=== PATIENT | female | born 1970 | race Caucasian/White ===

== ENCOUNTER 2021-09-30 11:21 | Emergency (ER) | payer OTHER, SELFPAY ==
[2021-09-30 11:23] VITALS: BP 162/92; PULSE 78; RESP 20; TEMP 36.4; O2SAT 97; BMI 25.7
--- NOTE | 2021-09-30 11:33 | PC.NURSE ---
pt states that had her methadone 165mg po this am
== END 2021-09-30 16:21 | disposition left against medical advice (07) ==
PROVIDERS: Emergency Provider Emergency Medicine
DX: S01.91XA Laceration without foreign body of unspecified part of head, initial encounter (principal); W19.XXXA Unspecified fall, initial encounter; Y93.9 Activity, unspecified; Y92.9 Unspecified place or not applicable; Y99.9 Unspecified external cause status
CPT/HCPCS: 99281; 99282

== ENCOUNTER 2021-11-22 14:10 | Emergency (ER) | payer OTHER, SELFPAY ==
[2021-11-22 14:24] VITALS: BP 125/80; PULSE 66; O2SAT 97
== END 2021-11-22 15:30 | disposition left against medical advice (07) ==
PROVIDERS: Emergency Provider Emergency Medicine
DX: R42 Dizziness and giddiness (principal); R29.6 Repeated falls

== ENCOUNTER 2022-02-22 15:33 | Emergency (ER) | payer OTHER, SELFPAY ==
[2022-02-22 15:43] VITALS: BP 140/90; PULSE 70; RESP 18; TEMP 37.1; O2SAT 95; BMI 24.9
--- NOTE | 2022-02-22 16:13 | ED.OVERDOSE ---
HPI - Overdose General Chief Complaint: Overdose Stated Complaint: overdose Time Seen by Provider: 02/22/22 16:04 Source: patient Mode of arrival: ambulatory Limitations: no limitations History of Present Illness HPI Narrative: Patient presents to the emergency department for evaluation after a question of overdose. She states that she is currently residing at a sober living house, [facility] in [facility]. Reports that she was at an appointment today, there was supposed to be a cdl company driver to pick her up apparently was not present. She recalls walking to a store, does not recall anything after that. She states that she awoke in someone's after having been given Narcan. She denies knowing what she had use. Reports last used heroin and crack cocaine 02/01/2022. She reports since receiving Narcan she is having diffuse abdominal cramping and nausea with dry heaving. Denies any symptoms previously. Denies fevers, chills, dysuria, urinary frequency low back pain, chest pain shortness of breath, difficulty breathing. Related Data Allergies Allergy/AdvReac Type Severity Reaction Status Date / Time No Known Allergies Allergy Verified 02/22/22 15:48 Review of Systems Review of Systems: Constitutional: No weight loss, fever, chills, weakness or fatigue. Skin: No rash or itching. Cardiovascular: No chest pain, chest pressure or chest discomfort. No palpitations or pedal edema. Respiratory: No shortness of breath, cough or sputum production. Gastrointestinal: Positive nausea. No vomiting or diarrhea. Positive abdominal pain. No blood in stool. Genitourinary: No burning micturition. No urinary frequency or incontinence. Musculoskeletal: No muscle pain, back pain, joint pain or stiffness. Psychiatric: No depression or anxiety. Yes all other systems are reviewed and are negative PMFSH Past Medical History Attestation statement: The following information was validated with the patient. Source: old records reviewed Medical History Anxiety Depression Emphysema lung Hiatal hernia Social History Social History Alcohol intake: never Patient Tobacco Use Status: Current everyday Tobacco user Use of substances other than those prescribed or required for medical reasons: Yes Substance Use Type: Heroin Advance Directives: No Advance Directives Information Provided: No Patient : No Physical Exam Vital Signs: Vital Signs: Last Vital Signs Temp 98.2 F 02/22/22 17:19 Pulse 70 02/22/22 17:19 Resp 16 02/22/22 17:19 BP 142/68 H 02/22/22 17:19 Pulse Ox 93 02/22/22 17:19 O2 Del Method 02/22/22 17:19 BMI result Body Mass Index 24.9 Appearance: Alert.?Oriented to person, place and time. No acute distress.?Normal affect. Head: Normocephalic atraumatic Eyes: Pupils equal, round and reactive to light.? ENT: Pharynx normal.?? Neck: Normal inspection.? Neck supple.?? CVS: Heart sounds normal. Normal heart rate and rhythm.? Pulses normal.?? Respiratory: No respiratory distress.? Lung sounds clear to auscultation bilaterally?? Abdomen: Soft and non-tender. Normoactive bowel sounds. No CVA tenderness? Skin: Skin warm and dry.? Normal skin color.? Extremities: No lower extremity edema.? ? Neuro: Moves all extremities spontaneously. Sensation intact bilaterally. CN II-XII intact. No focal neuro deficits. Ambulates with normal steady gait. Course Course Course Narrative: Patient is a 51-year-old female who presents to the emergency department after an alleged overdose receiving Narcan uncertain amount. Was brought to the emergency department by head golf coach use. Patient with minimal recollection of what occurred after walking to a store. No evidence of head injury, no focal neurological deficits. She is overall well-appearing. Suspect nausea and abdominal cramping to be secondary to Narcan, patient to receive Zofran sublingually. Will monitor patient and refer to head golf coach for disposition Reevaluation(s) Reevaluation #1: Patient evaluated by care team; Jenniferdavid ROSENBERG, endorsed going to [facility] and received drugs from someone there reporting that she snorted 2 bags of heroin. States that due to odd behaviors someone that she was around gave her Narcan. She denies ever overdosing in the past. States that she did not use intravenous drugs previously. She has been without drug usage since 02/01/2022, reports that she is currently on methadone. Attempting to get in contact with prior sober [facility] program to determine whether patient may return. Urine toxicology is positive for opiates, fentanyl, and cocaine. Reevaluation #2: CBC reveals mild leukocytosis which is likely reactive with vomiting. Denies any recent infectious symptoms no upper respiratory symptoms, no shortness of breath, no abdominal pain, no dysuria or urinary frequency. Denies any wounds or lesions to the skin, areas of redness or swelling. CMP unremarkable. Urinalysis without evidence of infection. Patient with no complaints at this time. Patient placed in physician observation as she will require additional time to be evaluated by head golf coach for assistance with detox bed search Time: 17:58 MDM - Overdose Medical Records Attestation: I reviewed the patient's medical records. Lab Data Attestation: I reviewed the patient's lab results. Result diagrams: 02/22/22 16:44 02/22/22 16:44 Labs: Lab Results 02/22/22 02/22/22 02/22/22 Range/Units 16:35 16:44 16:44 WBC 14.6 H (4.8-10.8) X10*3/uL RBC 4.21 (4.20-5.50) X10*6/uL Hgb 10.5 L (12.0-16.0) g/dl Hct 33.5 L (37.0-47.0) % MCV 79.6 L (80.0-98.0) fL MCH 24.9 L (27.0-33.0) pg MCHC 31.3 (31.0-35.0) g/dl RDW 17.4 H (11.0-16.0) % Plt Count 394 (160-400) X10*3/uL MPV 10.7 (9.4-12.3) fL Immature Gran % (Auto) 0.5 H (0.0-0.4) % Neut % (Auto) 86.0 H (45-73) % Lymph % (Auto) 9.4 L (20-40) % [place] % (Auto) 3.3 (2-11) % Eos % (Auto) 0.5 (0-4) % Baso % (Auto) 0.3 (0-2) % Lymph # (Auto) 1.4 (1.2-4.9) X10*3/uL [place] # (Auto) 0.5 (0.1-1.2) X10*3/uL Eos # (Auto) 0.1 (0.0-0.4) X10*3/uL Baso # (Auto) 0.1 (0.0-0.2) X10*3/uL Abs Immat Gran (auto) 0.08 H (0.00-0.03) X10*3/uL Absolute Neuts (auto) 12.6 H (2.0-8.3) x10*3/uL Absolute Nucleated RBC 0.000 (0.0-0.012) X10*3/uL Nucleated RBC % (auto) 0.0 (0.0-0.2) /100WBC Sodium 140 (135-145) mmol/L Potassium 4.4 (3.3-5.1) mmol/L Chloride 107 (96-108) mmol/L Carbon Dioxide 19 L (22-29) mmol/L Anion Gap 18 (12-20) BUN 13 (9-16) mg/dL Creatinine 0.82 (0.5-1.4) mg/dL Estim Creat Clear Calc 74.9 Estimated GFR > 60 Random Glucose 99 (60-115) mg/dL Calcium 8.8 (8.4-10.2) mg/dL Total Bilirubin < 0.2 (0.0-1.0) mg/dL AST 19 (5-31) U/L ALT 19 (0-31) U/L Alkaline Phosphatase 93 (39-117) U/L Total Protein 7.3 (6.5-8.0) g/dL Albumin 3.5 (3.5-5.0) g/dL Urine Color Yellow Urine Appearance Clear Urine pH 7.0 (5.0-9.0) Ur Specific [place] <= 1.005 (1.005-1.025) Urine Protein Negative (Neg-Trace) mg/dL Urine Glucose (UA) Negative (Negative) mg/dL Urine Ketones Negative (Negative) mg/dL Urine Blood Negative (Negative) Urine Nitrite Negative (Negative) Ur Leukocyte Esterase Negative (Negative) Urine Opiates Screen (Not Detect) Urine Fentanyl Screen (Not Detect) Ur Barbiturates Screen (Not Detect) Ur Phencyclidine Scrn (Not Detect) Ur Amphetamines Screen (Not Detect) U Benzodiazepines Scrn (Not Detect) Urine Cocaine Screen (Not Detect) U Marijuana (THC) Screen (Not Detect) 09/28/22 Range/Units 16:44 WBC (4.8-10.8) X10*3/uL RBC (4.20-5.50) X10*6/uL Hgb (12.0-16.0) g/dl Hct (37.0-47.0) % MCV (80.0-98.0) fL MCH (27.0-33.0) pg MCHC (31.0-35.0) g/dl RDW (11.0-16.0) % Plt Count (160-400) X10*3/uL MPV (9.4-12.3) fL Immature Gran % (Auto) (0.0-0.4) % Neut % (Auto) (45-73) % Lymph % (Auto) (20-40) % [place] % (Auto) (2-11) % Eos % (Auto) (0-4) % Baso % (Auto) (0-2) % Lymph # (Auto) (1.2-4.9) X10*3/uL [place] # (Auto) (0.1-1.2) X10*3/uL Eos # (Auto) (0.0-0.4) X10*3/uL Baso # (Auto) (0.0-0.2) X10*3/uL Abs Immat Gran (auto) (0.00-0.03) X10*3/uL Absolute Neuts (auto) (2.0-8.3) x10*3/uL Absolute Nucleated RBC (0.0-0.012) X10*3/uL Nucleated RBC % (auto) (0.0-0.2) /100WBC Sodium (135-145) mmol/L Potassium (3.3-5.1) mmol/L Chloride (96-108) mmol/L Carbon Dioxide (22-29) mmol/L Anion Gap (12-20) BUN (9-16) mg/dL Creatinine (0.5-1.4) mg/dL Estim Creat Clear Calc Estimated GFR Random Glucose (60-115) mg/dL Calcium (8.4-10.2) mg/dL Total Bilirubin (0.0-1.0) mg/dL AST (5-31) U/L ALT (0-31) U/L Alkaline Phosphatase (39-117) U/L Total Protein (6.5-8.0) g/dL Albumin (3.5-5.0) g/dL Urine Color Urine Appearance Urine pH (5.0-9.0) Ur Specific [place] (1.005-1.025) Urine Protein (Neg-Trace) mg/dL Urine Glucose (UA) (Negative) mg/dL Urine Ketones (Negative) mg/dL Urine Blood (Negative) Urine Nitrite (Negative) Ur Leukocyte Esterase (Negative) Urine Opiates Screen POSITIVE H (Not Detect) Urine Fentanyl Screen POSITIVE H (Not Detect) Ur Barbiturates Screen Not Detected (Not Detect) Ur Phencyclidine Scrn Not Detected (Not Detect) Ur Amphetamines Screen Not Detected (Not Detect) U Benzodiazepines Scrn Not Detected (Not Detect) Urine Cocaine Screen POSITIVE H (Not Detect) U Marijuana (THC) Screen Not Detected (Not Detect) Discharge Plan Discharge Clinical Impression: Polysubstance use disorder Patient Disposition: Still a Patient Additional Instructions: Please go to detox as you are not able to return to the sober living house until you have completed detox. Return to the emergency department any new or worsening symptoms or concerns
[2022-02-22 16:56] LABS: Appearance Urine Clear; Color Urine Yellow; Glucose Urine UA Negative (Negative); Leukocyte Esterase Urine Negative (Negative); Nitrite Urine Negative (Negative); Specific Gravity - Urine <= 1.005 (1.005-1.025); Urine Blood Negative (Negative); Urine Ketones Negative (Negative); Urine Protein Negative (Neg-Trace)
--- NOTE | 2022-02-22 17:05 | PC.NURSE ---
RN was going to complete the assessment but behavioral health asked to continue later since she was completing an assessment. Will continue to monitor.
[2022-02-22 17:06] LABS: MANUAL DIFF FLAG NO
[2022-02-22 17:13] LABS: Amphetamine Screen Urine Not Detected (Not Detect); Barbiturates, Urine Not Detected (Not Detect); Benzodiazepines Screen Urine Not Detected (Not Detect); Cannabinoid Screen Urine Not Detected (Not Detect); Cocaine Screen Urine POSITIVE (Not Detect); Fentanyl, urine POSITIVE (Not Detect); Opiate Screen Urine POSITIVE (Not Detect); Phencyclidine Screen Urine Not Detected (Not Detect)
[2022-02-22] MEDS: Ondansetron ODT 4 MG TAB.RAPDIS TRANSLINGU (17:17)
[2022-02-22 17:19] VITALS: BP 142/68; PULSE 70; RESP 16; TEMP 36.8; O2SAT 93
--- NOTE | 2022-02-22 17:22 | PC.NURSE ---
patient a&ox3, vss, denies si/hi, labs drawn, urine obtained, no c/o pain or discomfort, seen by care team, will continue to monitor
--- NOTE | 2022-02-22 17:32 | HO.SUDE ---
CARE Team meets with pt to offer SUDE. Pt is laying in bed, tearful and expressing remorse about her relapse today. Pt states that she has been clean for about a month from crack/cocaine and heroin use, going to [facility]S, [facility], and then to the [facility] program where she is currently. Pt reported that today she went to a doctor appt and after the appt called for her ride back to the program. She reports that she could not get through to the company who provides the ride to her, so she walked to the nearby gas station where she encountered someone who offered her drugs. She reports that she remembers using 2 bags of heroin intranasally but does not remember anything after that. She reports that the people she was with administered narcan because she was not acting right, with eyes rolling back inn her head. Pt assumes she mistakenly took narcan. UTOX positive for opioids, fentanyl and cocaine. Pt is currently on MAT, getting a methadone dose daily at [facility]. Pt identifies a desire to get back on track with her recovery and return to the [facility] program. CARE Team calls the [facility] and speaks with Rayna who will be there until 1900, ; Rayna reports that pt cannot return to the program and will need to go to detox. To reach the [facility] staff call [phone]. Plan is for pt to work with the recovery team on detox placement.
[2022-02-22 17:37] LABS: Basophils Absolute Auto 0.1 X10*3/uL (0.0-0.2); Basophils Percent Auto 0.3 % (0-2); Eosinophils Absolute Auto 0.1 X10*3/uL (0.0-0.4); Eosinophils Percent Auto 0.5 % (0-4); Hematocrit 33.5 % (37.0-47.0); Hemoglobin 10.5 g/dl (12.0-16.0); Imm Gran Abs Auto 0.08 X10*3/uL (0.00-0.03); Imm Gran Pct Auto 0.5 % (0.0-0.4); Lymphocytes Absolute Auto 1.4 X10*3/uL (1.2-4.9); Lymphocytes Percent Auto 9.4 % (20-40); Mean Corpuscular HGB Conc 31.3 g/dl (31.0-35.0); Mean Corpuscular Hemoglobin 24.9 pg (27.0-33.0); Mean Corpuscular Volume 79.6 fL (80.0-98.0); Mean Platelet Volume 10.7 fL (9.4-12.3); Monocytes Absolute Auto 0.5 X10*3/uL (0.1-1.2); Monocytes Percent Auto 3.3 % (2-11); Neutrophils Absolute Auto 12.6 x10*3/uL (2.0-8.3); Platelet Count 394 X10*3/uL (160-400); Red Blood Count 4.21 X10*6/uL (4.20-5.50); Red Cell Distribution Width 17.4 % (11.0-16.0); White Blood Count 14.6 X10*3/uL (4.8-10.8)
[2022-02-22 17:44] LABS: Alanine Aminotransferase 19 U/L (0-31); Albumin Level 3.5 g/dL (3.5-5.0); Alkaline Phosphatase 93 U/L (39-117); Anion Gap 18 (12-20); Aspartate Amino Transferase 19 U/L (5-31); Bilirubin Total < 0.2 mg/dL (0.0-1.0); Blood Urea Nitrogen 13 mg/dL (9-16); Calcium 8.8 mg/dL (8.4-10.2); Carbon Dioxide 19 mmol/L (22-29); Chloride 107 mmol/L (96-108); Creatinine Clr Calc Pharmacy 74.9; Estimated Glomerular Filt Rate > 60; Glucose Random 99 mg/dL (60-115); Potassium 4.4 mmol/L (3.3-5.1); Sodium 140 mmol/L (135-145); Total Protein 7.3 g/dL (6.5-8.0)
[2022-02-22 20:00] VITALS: BP 146/62; PULSE 76; RESP 18; TEMP 36.8; O2SAT 94
--- NOTE | 2022-02-22 20:59 | MHC.RECOVSUP ---
? Reason for consult:OPI o Current location:ED22H o Identified substance use concern: - Overdose - Seeking ATS (detox) - Support ? Intervention: o ATS bed search started/completed/in process o Harm reduction discussion ? Plan: o Bed search in progress to o Follow up tomorrow ? Additional information:[facility] sent referral packet to [facility], waiting for nurse to review and call back. Pt might have to stay the night, and try again in the morning. Pt asked if she can have her night meds, is going to ask nurse to complete med rec. Please follow up!
--- NOTE | 2022-02-22 21:12 | PHA.MEDREC ---
Pharmacy Consult ? Medication Reconciliation Pharmacy has completed the medication reconciliation. Patient states shes on methadone with saloni estrada.
[2022-02-22 22:00] VITALS: BP 141/68; PULSE 72; RESP 18; TEMP 36.7; O2SAT 93
--- NOTE | 2022-02-22 22:16 | PC.NURSE ---
patient a&ox3, pt aware she may end up spending the night waiting for a detox bed that she and the motor coach chauffeur are working on. vss, med req has been completed by pharmacy, provider aware, will continue to monitor
[2022-02-22] MEDS: hydrOXYzine HCL 25 MG TABLET PO (22:49)
[2022-02-22] MEDS: Pregabalin 200 MG CAPSULE PO (22:49)
[2022-02-22] MEDS: traZODone HCL 100 MG TABLET 150 MG PO (23:02)
[2022-02-22] MEDS: Acetaminophen 325 MG TABLET 650 MG PO (23:02)
[2022-02-23 01:16] VITALS: BP 125/73; PULSE 63; RESP 16; TEMP 36.6; O2SAT 95
[2022-02-23 11:07] VITALS: BP 135/87; PULSE 61; RESP 18; O2SAT 93
[2022-02-23] MEDS: Amitriptyline HCl 25 MG TABLET 75 MG PO (11:08)
[2022-02-23] MEDS: Venlafaxine HCl ER 150 MG CAP.ER.24H PO (11:09)
[2022-02-23] MEDS: QUEtiapine Fumarate 25 MG TABLET PO (11:09)
[2022-02-23] MEDS: Pregabalin 200 MG CAPSULE PO ×2 (11:09→15:56)
[2022-02-23] MEDS: hydrOXYzine HCL 25 MG TABLET PO (11:09)
[2022-02-23] MEDS: Loratadine 10 MG TABLET PO (11:09)
[2022-02-23] MEDS: Omeprazole 20 MG CAPSULE.DR PO (11:15)
--- NOTE | 2022-02-23 11:38 | PC.NURSE ---
sha fischer at bedside speaking to the pt
--- NOTE | 2022-02-23 11:56 | HE.PHANOTE ---
Spoke to Sandie barnett in the ED, passed along the message that pharmacy is waiting on a verification form for the methadone order.
--- NOTE | 2022-02-23 12:28 | MHC.CARE ---
CARE Team followed up with pt secondary to concerns from her machine group leader in reference to her mental health. Pt does not appear to be in an acute crisis at this time. Pt denies SI, plan intent or means. Pt reprots there was a misunderstanding drinking peroxide and the manger wants her to say things to keep her here in the hospital.. Pt does not report HI/AH/VH. Pt reports she has been residing at [facility] the past week and prior to this was homeless. Pt is advocating for her return to the alf. Pt denies hx of IPLOC admissions or suicide attempts or gestures. Pt reports experiencing chronic substance use. Pt is currently on methadone maintenance. Recovery nurse practitioner met with pt. Doesn't feel pt needs detox admission as she is on methadone and relapsed once. Plan for CARE Team to follow up with alf if they will consider taking her back after Vicki Wing met with Pt.
[2022-02-23] MEDS: methADONE HCl 20 MG/2 ML ORAL.CONC 180 MG PO (12:41)
--- NOTE | 2022-02-23 12:51 | HO.ADDICT_ITS ---
History of Present Illness Date of Service: 02/23/2022 Chief Complaint: overdose Reason for Consult: opioid overdose HPI Narrative: Patient is a 51 year old female with history of OUD currently engaged in treatment with [facility]. Presented to the [facility] ED following suspected opioid overdose requiring narcan. She reports she has not used any substances since 02/01/2022 and recently moved into [facility] in [place]. She reported a recurrence last evening, and denies any other use. She was hoping to go back into her treatment program, but was advised by Manager [employer] that she would require a crisis evaluation. This underwriter mortgage loan spoke to director to explain that based on what patient was reporting and documentation, a crisis evaluation was not warranted. Director then stated that patient is fairly new to their residence as she has been there only 6 days. She reported that recently poison control had to be called due to patient drinking hydrogen peroxide. Discussed case with CARE team and after they spoke with patient it was deemed that crisis evaluation not needed. Manager Completions was contacted by CARE team and informed us that patient would be unable to return to residence. At this time patient open to ATS referral. Denies any thoughts of harming herself or others. Denies that use was an intentional attempt to overdose. Expressing regret about the decision she made. Methadone dose of 180mg verified by this underwriter mortgage loan and ordered. Patient denies any withdrawal sx., and appearing comfortable. Review of Systems Constitutional: Reports as per HPI and Reports no additional constitutional complaints Diagnostics Vital Signs (24Hr): Vital Signs - 24 hr 02/22/22 15:43 02/22/22 17:19 02/22/22 20:00 Temperature 98.7 F 98.2 F 98.2 F Pulse Rate 70 70 76 Respiratory Rate 18 16 18 Blood Pressure 140/90 H 142/68 H 146/62 H Pulse Oximetry 95 93 94 Oxygen Delivery Method Room Air Room Air Room Air 02/22/22 22:00 02/23/22 01:16 02/23/22 11:07 Temperature 98.1 F 97.9 F Pulse Rate 72 63 61 Respiratory Rate 18 16 18 Blood Pressure 141/68 H 125/73 135/87 Pulse Oximetry 93 95 93 Oxygen Delivery Method Room Air Room Air Room Air BMI result Body Mass Index 24.9 Labs Results: 02/22/22 16:44 09/28/22 16:44 Labs: Laboratory Results - last 48 hr 02/22/22 02/22/22 02/22/22 16:35 16:44 16:44 WBC 14.6 H RBC 4.21 Hgb 10.5 L Hct 33.5 L MCV 79.6 L MCH 24.9 L MCHC 31.3 RDW 17.4 H Plt Count 394 MPV 10.7 Immature Gran % (Auto) 0.5 H Neut % (Auto) 86.0 H Lymph % (Auto) 9.4 L [place] % (Auto) 3.3 Eos % (Auto) 0.5 Baso % (Auto) 0.3 Lymph # (Auto) 1.4 [place] # (Auto) 0.5 Eos # (Auto) 0.1 Baso # (Auto) 0.1 Abs Immat Gran (auto) 0.08 H Absolute Neuts (auto) 12.6 H Absolute Nucleated RBC 0.000 Nucleated RBC % (auto) 0.0 Sodium 140 Potassium 4.4 Chloride 107 Carbon Dioxide 19 L Anion Gap 18 BUN 13 Creatinine 0.82 Estim Creat Clear Calc 74.9 Estimated GFR > 60 Random Glucose 99 Calcium 8.8 Total Bilirubin < 0.2 AST 19 ALT 19 Alkaline Phosphatase 93 Total Protein 7.3 Albumin 3.5 Urine Color Yellow Urine Appearance Clear Urine pH 7.0 Ur Specific [place] <= 1.005 Urine Protein Negative Urine Glucose (UA) Negative Urine Ketones Negative Urine Blood Negative Urine Nitrite Negative Ur Leukocyte Esterase Negative Urine Opiates Screen Urine Fentanyl Screen Ur Barbiturates Screen Ur Phencyclidine Scrn Ur Amphetamines Screen U Benzodiazepines Scrn Urine Cocaine Screen U Marijuana (THC) Screen 02/22/22 16:44 WBC RBC Hgb Hct MCV MCH MCHC RDW Plt Count MPV Immature Gran % (Auto) Neut % (Auto) Lymph % (Auto) [place] % (Auto) Eos % (Auto) Baso % (Auto) Lymph # (Auto) [place] # (Auto) Eos # (Auto) Baso # (Auto) Abs Immat Gran (auto) Absolute Neuts (auto) Absolute Nucleated RBC Nucleated RBC % (auto) Sodium Potassium Chloride Carbon Dioxide Anion Gap BUN Creatinine Estim Creat Clear Calc Estimated GFR Random Glucose Calcium Total Bilirubin AST ALT Alkaline Phosphatase Total Protein Albumin Urine Color Urine Appearance Urine pH Ur Specific [place] Urine Protein Urine Glucose (UA) Urine Ketones Urine Blood Urine Nitrite Ur Leukocyte Esterase Urine Opiates Screen POSITIVE H Urine Fentanyl Screen POSITIVE H Ur Barbiturates Screen Not Detected Ur Phencyclidine Scrn Not Detected Ur Amphetamines Screen Not Detected U Benzodiazepines Scrn Not Detected Urine Cocaine Screen POSITIVE H U Marijuana (THC) Screen Not Detected Mental Status Exam Mental Status Exam Patient Appearance: Appropriate Patient Orientation: Person, Place, Time and Situation Level of Consciousness: Awake and Appropriate Patient Behavior: Appropriate Mood Description: Anxious Affect Description: Anxious Patient Cognition Impaired: No Thought Process: Goal Oriented Thought Content: positive for Circumstantial and positive for Goal Oriented Judgement: Fair Medications Medications Current Medications Albuterol Sulfate (Albuterol Sulfate 90 Mcg 8 Gm Inhaler) 1 puff INHALE Q4H PRN PRN Reason: Wheezing Amitriptyline HCl (Amitriptyline Hcl 25 Mg Tablet) 75 mg PO DAILY [facility] Last Admin: 02/23/22 11:08 Dose: 75 mg Hydroxyzine HCl (Hydroxyzine Hcl 25 Mg Tablet) 25 mg PO BID [facility] Last Admin: 02/23/22 11:09 Dose: 25 mg Loratadine (Loratadine 10 Mg Tablet) 10 mg PO DAILY [facility] Last Admin: 02/23/22 11:09 Dose: 10 mg Non-Formulary Medication (Acetaminophen) 650 mg PO Q12H [facility] Non-Formulary Medication (Yxigxuinvlc-Biignnsgj-Jikftjxx [Trelegy Ellipta]) 1 puff INHALE DAILY [facility] Omeprazole (Omeprazole 20 Mg Capsule.Dr) 20 mg PO BID@0630,1630 [facility] Last Admin: 02/23/22 11:15 Dose: 20 mg Pharmacy Consult (Consult Rx Perform Med Rec) 1 each MISCELLANE ONCE PRN PRN Reason: Consult order Pregabalin (Pregabalin 200 Mg Capsule) 200 mg PO TID [facility] Last Admin: 02/23/22 11:09 Dose: 200 mg Trazodone HCl (Trazodone Hcl 100 Mg Tablet) 150 mg PO BEDTIME [facility] Venlafaxine HCl (Venlafaxine Hcl Er 150 Mg Cap.Er.24h) 150 mg PO DAILY [facility] Last Admin: 02/23/22 11:09 Dose: 150 mg Allergies Allergies Allergy/AdvReac Type Severity Reaction Status Date / Time No Known Allergies Allergy Verified 02/22/22 15:48 Assessment & Plan Assessment & Plan (1) Opioid use disorder: Status: Acute Code(s): F11.90 - Opioid use, unspecified, uncomplicated Assessment and Plan: * referral out to [place] [facility] * accepted and transferred I spent ___75___ minutes with the patient and/or on the patient floor today, greater than?50% of which was spent counseling/coordinating care. PMFSH Past Medical History Medical History Anxiety Depression Emphysema lung Hiatal hernia Social History Social History Alcohol intake: never Patient Tobacco Use Status: Current everyday Tobacco user Use of substances other than those prescribed or required for medical reasons: Yes Substance Use Type: Heroin Advance Directives: No Advance Directives Information Provided: No Patient : No
--- NOTE | 2022-02-23 13:08 | MHC.CARE ---
CARE Team spoke licha Fox at [facility]. They will not allow Pt back at this time without a TSS/CSS placement. CARE Team notified Vicki Wing NP
--- NOTE | 2022-02-23 13:13 | HE.PHANOTE ---
Received methadone verification form [facility] last dose 02/22/22 180mg
[2022-02-23 15:37] VITALS: BP 105/72; PULSE 77; RESP 16; TEMP 36.9; O2SAT 96
== END 2022-02-23 16:08 ==
PROVIDERS: Emergency Provider Emergency Medicine; PCP Nurse Practitioner Family
DX: F19.10 Other psychoactive substance abuse, uncomplicated (principal); R10.9 Unspecified abdominal pain; R11.0 Nausea; F11.20 Opioid dependence, uncomplicated; F17.200 Nicotine dependence, unspecified, uncomplicated
CPT/HCPCS: 36415; 80053; 80307; 81003; 85025; 99285

== ENCOUNTER 2022-09-20 22:56 | Inpatient (IN) | payer OTHER, SELFPAY ==
--- NOTE | ~2022-09-20 | CT_ITS ---
EXAMINATION: CT CHEST WITHOUT CONTRAST CLINICAL INFORMATION: Shortness of breath COMPARISON: Radiograph from today. TECHNIQUE: Multidetector volumetric CT imaging of the chest was done. Axial MIP volume rendering provided. Sagittal and coronal reformatted images were obtained. This CT examination was performed using dose optimization techniques as appropriate, variously including the following: *Automated exposure control *Adjustment of mA and/or kV according to patient size (this includes techniques or standardized protocols for targeted exams where dose is matched to indication/reason for exam; i.e. extremities or head) *Use of iterative reconstruction technique DLP: 303 mGy-cm FINDINGS: HEALTHCARE REPRESENTATIVE: Cardiac leads in place. Elevated diaphragm. LUNGS: The central airways are patent. Dependent opacification of the right lower lobe. Mild peripheral groundglass opacity at the lung apices. Left basilar atelectasis. No pneumothorax. Mild centrilobular emphysema. MEDIASTINUM: Mildly prominent heart size. No pericardial effusion. Prominent mediastinal lymph nodes. For instance there is a node adjacent to the ascending thoracic aorta measuring 1.1 cm. This is seen on series 3 image 22. There is a precarinal node measuring 1 cm on image 20. CORONARY ARTERY CALCIFICATION: Present PLEURA: There is no pleural effusion. No pleural mass or thickening. AXILLA: No lymphadenopathy. UPPER ABDOMEN: Hypoattenuating liver lesions are identified, measuring simple fluid. OSSEOUS STRUCTURES: No acute or suspicious osseous abnormality. Mild degenerative changes throughout the spine. CT/CT chest wo IV con IMPRESSION: Airspace opacities in the lung apices as well as in the right lower lobe. This is concerning for pneumonia. Fleischner guidelines were followed.
--- NOTE | ~2022-09-20 | XR_ITS ---
EXAMINATION: XR CHEST CLINICAL INFORMATION: Short of breath COMPARISON: None available. TECHNIQUE: Frontal view of the chest was obtained. FINDINGS: Elevated right hemidiaphragm. Bronchial wall thickening. No dense consolidation. No pleural effusion or pneumothorax. The cardiomediastinal silhouette is within normal limits of size. XR/XR chest 1V IMPRESSION: No consolidation. Bronchial wall thickening can be seen with a small airways process such as asthma or atypical/viral infection.
[2022-09-20 23:05] VITALS: BP 119/64; BP 152/88; PULSE 105; PULSE 73; RESP 18; TEMP 37.1; O2SAT 93; BMI 24.0
--- NOTE | 2022-09-20 23:33 | PC.NURSE ---
security called at arrival of pt this rn and security staff assisted pt in oil change technician to hospital attire. pt cooperative at this time. pt unsteady on feet. security to secure belongings in decon. per security pt okay to have cell phone
--- NOTE | 2022-09-20 23:48 | ED.ALCOHOL ---
HPI - Alcohol General Chief Complaint: ETOH/Substance Use Stated Complaint: seeking detox Time Seen by Provider: 09/20/22 23:39 Source: patient and EMS Mode of arrival: EMS Limitations: no limitations History of Present Illness HPI narrative: Patient history of substance abuse use opiates fentanyl and cocaine left [facility] today as she was not happy and her medications were not updated found very sleepy when she arrived to the ER patient denies any substance abuse after discharge from detox but seems to be very drowsy desaturating to 85% while sleep patient been complaining of cough for last few days with mucopurulent expectoration denies any IV drug use , does only snorting no fever no chills no chest pain or palpitation Related Data Home Medications Medication Instructions Recorded Confirmed acetaminophen 650 mg 650 mg PO Q12H 02/22/22 02/22/22 tablet,extended release albuterol sulfate 90 mcg/actuation 90 mcg inhalation Q4H PRN Wheezing 02/22/22 02/22/22 aerosol inhaler (ProAir HFA) amitriptyline 25 mg tablet 75 mg PO DAILY 02/22/22 02/22/22 cetirizine 10 mg tablet 1 tab PO DAILY 02/22/22 02/22/22 fluticasone fur. 100 mcg-umeclid 1 puff inhalation DAILY 02/22/22 02/22/22 62.5 mcg-vilant 25 mcg inhalat.powder (Trelegy Ellipta) hydroxyzine pamoate 25 mg capsule 1 cap PO BID 02/22/22 02/22/22 methadone 10 mg/mL oral 180 mg 02/22/22 concentrate (Methadone Intensol) omeprazole 20 mg capsule,delayed 20 mg PO BID 02/22/22 02/22/22 release pregabalin 200 mg capsule 1 cap PO TID 02/22/22 02/22/22 trazodone 150 mg tablet 1 tab PO BEDTIME 02/22/22 02/22/22 venlafaxine 150 mg 1 cap PO DAILY 02/22/22 02/22/22 capsule,extended release 24 hr Allergies Allergy/AdvReac Type Severity Reaction Status Date / Time No Known Allergies Allergy Verified 02/22/22 15:48 Review of Systems Review of Systems: Yes all other systems are reviewed and are negative PMFSH Past Medical History Medical History Anxiety Depression Emphysema lung Hiatal hernia Social History Social History Alcohol intake: never Patient Tobacco Use Status: Current everyday Tobacco user Smoked in Last 30 Days: No Use of substances other than those prescribed or required for medical reasons: Yes Substance Use Type: Crack/Cocaine, Heroin and Marijuana Substance Use Frequency: Chronic Longstanding Advance Directives: No Advance Directives Information Provided: Yes Patient : No Physical Exam ED Vital Signs: Vital Signs - 24 hr 09/20/22 23:05 09/21/22 01:49 09/21/22 01:35 Temperature 98.7 F 98.4 F Pulse Rate 73 85 Respiratory Rate 18 20 Blood Pressure 119/64 155/73 H 106/66 Pulse Oximetry 93 97 83 L Oxygen Delivery Method Room Air Nasal Cannula Room Air Oxygen Flow Rate 2 09/21/22 02:47 Temperature 98.3 F Pulse Rate 78 Respiratory Rate 19 Blood Pressure 112/61 Pulse Oximetry 98 Oxygen Delivery Method Nasal Cannula Oxygen Flow Rate 2 BMI result Body Mass Index 24.0 Appearance: Sleepy , arousable. No acute distress. Eyes: PERRLA, No Nystagmus ENT: Pharynx normal. Oral Mucosa moist Neck: Normal inspection. Neck supple. CVS: Normal heart rate and rhythm. Pulses normal. Respiratory: No respiratory distress. Equal air entry bilateral, bilateral prolonged expiration with wheezing bilateral crackles at bases Abdomen: Soft and nontender. Bowel sounds are present, no mass palpable, no CVA tenderness Skin: Skin warm and dry. Normal skin color. Normal skin turgor. Extremities: No lower extremity edema. No calf tenderness Neuro: Oriented X 3. No motor deficit. No sensory deficit.No cerebellar signs , cranial nerves II-XII intact Medical Decision Making Medical Decision Making MDM Narrative: Patient with substance abuse came here for help from detox. Noticed to have leukocytosis with bilateral pneumonia and hypoxia patient does have history of COPD and asthma. Patient's oxygenation improved after nebulizing treatment saturating 99% on 2 L chest x-ray was negative CT scan showed bilateral infiltrate will start patient on IV antibiotic Rocephin and Zithromax. Blood cultures were drawn lactic acid was normal fluids were restricted because patient has elevated BNP although she was not in florid CHF. Case discussed with hospitalist agreed with the plan Consult Healthcare Provider Management of the patient was discussed with: Hospitalist Lab Data MDM Lab Attestation statement: I reviewed the patient's lab results. 09/21/22 01:46 09/21/22 01:46 Labs: Lab Results 09/21/22 09/21/22 09/21/22 Range/Units 01:39 01:46 01:46 WBC 28.0 H (4.8-10.8) X10*3/uL RBC 4.03 L (4.20-5.50) X10*6/uL Hgb 9.9 L (12.0-16.0) g/dl Hct 31.7 L (37.0-47.0) % MCV 78.7 L (80.0-98.0) fL MCH 24.6 L (27.0-33.0) pg MCHC 31.2 (31.0-35.0) g/dl RDW 19.6 H (11.0-16.0) % Plt Count 374 (160-400) X10*3/uL MPV 10.0 (9.4-12.3) fL Immature Gran % (Auto) 0.9 H (0.0-0.4) % Neut % (Auto) 85.2 H (45-73) % Lymph % (Auto) 9.6 L (20-40) % [place] % (Auto) 3.7 (2-11) % Eos % (Auto) 0.1 (0-4) % Baso % (Auto) 0.5 (0-2) % Lymph # (Auto) 2.7 (1.2-4.9) X10*3/uL [place] # (Auto) 1.0 (0.1-1.2) X10*3/uL Eos # (Auto) 0.0 (0.0-0.4) X10*3/uL Baso # (Auto) 0.2 (0.0-0.2) X10*3/uL Abs Immat Gran (auto) 0.25 H (0.00-0.03) X10*3/uL Absolute Neuts (auto) 23.9 H (2.0-8.3) x10*3/uL Absolute Nucleated RBC 0.000 (0.0-0.012) X10*3/uL Nucleated RBC % (auto) 0.0 (0.0-0.2) /100WBC Smear Tech's Comments VERIFIED VBG pH (7.32-7.43) VBG pCO2 mmHg VBG pO2 mmHg VBG HCO3 (22-26) mmol/L VBG O2 Saturation % VBG Base Excess mmol/L Sodium 137 (135-145) mmol/L Potassium 4.8 (3.3-5.1) mmol/L Chloride 104 (96-108) mmol/L Carbon Dioxide 25 (22-29) mmol/L Anion Gap 13 (12-20) BUN 18 H (9-16) mg/dL Creatinine 0.84 (0.5-1.4) mg/dL Estim Creat Clear Calc 66.8 Estimated GFR > 60 Random Glucose 94 (60-115) mg/dL Lactic Acid (0.5-2.0) mmol/L Calcium 8.8 (8.4-10.2) mg/dL Iron (30-160) mcg/dL TIBC (228-428) mcg/dL % Saturation (15-50) % Unsat Iron Binding ug/dL Total Bilirubin 0.8 (0.0-1.0) mg/dL AST 23 (5-31) U/L ALT 14 (0-31) U/L Alkaline Phosphatase 91 (39-117) U/L Troponin I High Sens (<3.5-17.0) ng/L B-Natriuretic Peptide (<100) pg/mL Total Protein 6.7 (6.5-8.0) g/dL Albumin 3.5 (3.5-5.0) g/dL Ethyl Alcohol mg/dL COVID-19 (OSKAR) Negative (Negative) COVID-19 Clin Com See Note 09/21/22 09/21/22 09/21/22 Range/Units 01:46 01:46 01:47 WBC (4.8-10.8) X10*3/uL RBC (4.20-5.50) X10*6/uL Hgb (12.0-16.0) g/dl Hct (37.0-47.0) % MCV (80.0-98.0) fL MCH (27.0-33.0) pg MCHC (31.0-35.0) g/dl RDW (11.0-16.0) % Plt Count (160-400) X10*3/uL MPV (9.4-12.3) fL Immature Gran % (Auto) (0.0-0.4) % Neut % (Auto) (45-73) % Lymph % (Auto) (20-40) % [place] % (Auto) (2-11) % Eos % (Auto) (0-4) % Baso % (Auto) (0-2) % Lymph # (Auto) (1.2-4.9) X10*3/uL [place] # (Auto) (0.1-1.2) X10*3/uL Eos # (Auto) (0.0-0.4) X10*3/uL Baso # (Auto) (0.0-0.2) X10*3/uL Abs Immat Gran (auto) (0.00-0.03) X10*3/uL Absolute Neuts (auto) (2.0-8.3) x10*3/uL Absolute Nucleated RBC (0.0-0.012) X10*3/uL Nucleated RBC % (auto) (0.0-0.2) /100WBC Smear Tech's Comments VBG pH 7.48 H (7.32-7.43) VBG pCO2 38 mmHg VBG pO2 43 mmHg VBG HCO3 29 H (22-26) mmol/L VBG O2 Saturation 70.0 % VBG Base Excess 5.8 mmol/L Sodium (135-145) mmol/L Potassium (3.3-5.1) mmol/L Chloride (96-108) mmol/L Carbon Dioxide (22-29) mmol/L Anion Gap (12-20) BUN (9-16) mg/dL Creatinine (0.5-1.4) mg/dL Estim Creat Clear Calc Estimated GFR Random Glucose (60-115) mg/dL Lactic Acid (0.5-2.0) mmol/L Calcium (8.4-10.2) mg/dL Iron 28 L (30-160) mcg/dL TIBC 269 (228-428) mcg/dL % Saturation 10 L (15-50) % Unsat Iron Binding 241 ug/dL Total Bilirubin (0.0-1.0) mg/dL AST (5-31) U/L ALT (0-31) U/L Alkaline Phosphatase (39-117) U/L Troponin I High Sens (<3.5-17.0) ng/L B-Natriuretic Peptide 638 H (<100) pg/mL Total Protein (6.5-8.0) g/dL Albumin (3.5-5.0) g/dL Ethyl Alcohol < 10 mg/dL COVID-19 (OSKAR) (Negative) COVID-19 Clin Com 09/21/22 09/21/22 Range/Units 02:54 02:54 WBC (4.8-10.8) X10*3/uL RBC (4.20-5.50) X10*6/uL Hgb (12.0-16.0) g/dl Hct (37.0-47.0) % MCV (80.0-98.0) fL MCH (27.0-33.0) pg MCHC (31.0-35.0) g/dl RDW (11.0-16.0) % Plt Count (160-400) X10*3/uL MPV (9.4-12.3) fL Immature Gran % (Auto) (0.0-0.4) % Neut % (Auto) (45-73) % Lymph % (Auto) (20-40) % [place] % (Auto) (2-11) % Eos % (Auto) (0-4) % Baso % (Auto) (0-2) % Lymph # (Auto) (1.2-4.9) X10*3/uL [place] # (Auto) (0.1-1.2) X10*3/uL Eos # (Auto) (0.0-0.4) X10*3/uL Baso # (Auto) (0.0-0.2) X10*3/uL Abs Immat Gran (auto) (0.00-0.03) X10*3/uL Absolute Neuts (auto) (2.0-8.3) x10*3/uL Absolute Nucleated RBC (0.0-0.012) X10*3/uL Nucleated RBC % (auto) (0.0-0.2) /100WBC Smear Tech's Comments VBG pH (7.32-7.43) VBG pCO2 mmHg VBG pO2 mmHg VBG HCO3 (22-26) mmol/L VBG O2 Saturation % VBG Base Excess mmol/L Sodium (135-145) mmol/L Potassium (3.3-5.1) mmol/L Chloride (96-108) mmol/L Carbon Dioxide (22-29) mmol/L Anion Gap (12-20) BUN (9-16) mg/dL Creatinine (0.5-1.4) mg/dL Estim Creat Clear Calc Estimated GFR Random Glucose (60-115) mg/dL Lactic Acid 0.9 (0.5-2.0) mmol/L Calcium (8.4-10.2) mg/dL Iron (30-160) mcg/dL TIBC (228-428) mcg/dL % Saturation (15-50) % Unsat Iron Binding ug/dL Total Bilirubin (0.0-1.0) mg/dL AST (5-31) U/L ALT (0-31) U/L Alkaline Phosphatase (39-117) U/L Troponin I High Sens 15.0 (<3.5-17.0) ng/L B-Natriuretic Peptide (<100) pg/mL Total Protein (6.5-8.0) g/dL Albumin (3.5-5.0) g/dL Ethyl Alcohol mg/dL COVID-19 (OSKAR) (Negative) COVID-19 Clin Com Medications Administered Generic Name Dose Route Start Last Admin Trade Name Freq PRN Reason Stop Dose Admin Ampicillin Sodium/Sulbactam 100 mls @ 200 mls/hr 09/21/22 04:00 09/21/22 04:40 Sodium 3 gm/ Sodium Chloride IV Infused Q6H RENETTA Infusion Methylprednisolone Sodium Succinate 40 mg 09/21/22 04:00 09/21/22 04:03 Methylprednisolone Sod Succ 40 Mg/Ml Vial IVPUSH 40 mg Q12H RENETTA Administration Discontinued Medications Generic Name Dose Route Start Last Admin Trade Name Freq PRN Reason Stop Dose Admin Albuterol Sulfate 2.5 mg/ 0 mg 09/21/22 01:10 09/21/22 01:51 Albuterol/Ipratropium 3 ml INHALE 09/21/22 01:11 5 each ONCE ONE Administration Ceftriaxone Sodium 1 gm/ 50 mls @ 100 mls/hr 09/21/22 02:47 09/21/22 03:30 Sodium Chloride IV 09/21/22 03:16 Infused ONCE ONE Infusion Azithromycin 500 mg/ Sodium 250 mls @ 125 mls/hr 09/21/22 02:47 09/21/22 03:58 Chloride IV 09/21/22 04:46 Not Given ONCE ONE Sodium Chloride 500 mls @ 500 mls/hr 09/21/22 03:41 09/21/22 05:30 Ns IV 09/21/22 04:40 Infused .Q1H ONE Infusion Naloxone HCl 0.4 mg 09/21/22 01:12 09/21/22 01:23 Naloxone Hcl 0.4 Mg/Ml Vial IVPUSH 09/21/22 01:13 0.4 mg ONCE ONE Administration Discharge Plan Discharge Clinical Impression: Bilateral pneumonia, Opioid use disorder, COPD (chronic obstructive pulmonary disease), Acute respiratory failure with hypoxia Patient Disposition: Admitted As Inpatient
[2022-09-21] VITALS (13 sets, daily range): BP systolic 106–155; BP diastolic 61–82; PULSE 60–99; RESP 12–20; TEMP 36.2–36.9; O2SAT 83–99; BMI 25.3
[2022-09-21] MEDS: Naloxone HCl 0.4 MG/ML VIAL IVPUSH (01:23)
--- NOTE | 2022-09-21 01:40 | PC.NURSE ---
Addendum entered by Thuy Vigil 09/21/22 04:48: correction @ 0110 medical accountant made this rn aware Original Note: @ 0135 medical accountant this rn aware of pt spo2 of 83% RA. pt able to be arroused by name call. pt denies sob. this rn had dr mckeon assess pt. per dr mckeon pt placed on2 LPM NC awaiting additional orders
[2022-09-21 01:52] LABS: Basophils Absolute Auto 0.2 X10*3/uL (0.0-0.2); Basophils Percent Auto 0.5 % (0-2); Eosinophils Percent Auto 0.1 % (0-4); Hematocrit 31.7 % (37.0-47.0); Hemoglobin 9.9 g/dl (12.0-16.0); Imm Gran Abs Auto 0.25 X10*3/uL (0.00-0.03); Imm Gran Pct Auto 0.9 % (0.0-0.4); Lymphocytes Absolute Auto 2.7 X10*3/uL (1.2-4.9); Lymphocytes Percent Auto 9.6 % (20-40); MANUAL DIFF FLAG SCAN; Mean Corpuscular HGB Conc 31.2 g/dl (31.0-35.0); Mean Corpuscular Hemoglobin 24.6 pg (27.0-33.0); Mean Corpuscular Volume 78.7 fL (80.0-98.0); Monocytes Percent Auto 3.7 % (2-11); Neutrophils Absolute Auto 23.9 x10*3/uL (2.0-8.3); Neutrophils Percent Auto 85.2 % (45-73); Platelet Count 374 X10*3/uL (160-400); Red Blood Count 4.03 X10*6/uL (4.20-5.50); Red Cell Distribution Width 19.6 % (11.0-16.0); SCAN SMEAR FLAG 1
[2022-09-21 01:54] LABS: Venous Blood Gas Refer to POC result
[2022-09-21 01:55] LABS: VBG Base Excess 5.8 mmol/L; VBG HCO3 29 mmol/L (22-26); VBG pCO2 38 mmHg; VBG pH 7.48 (7.32-7.43); VBG pO2 43 mmHg
[2022-09-21 01:57] LABS: COVID-19 Test Negative (Negative); IDNOW Serial# 08D9AD1C
[2022-09-21 02:05] LABS: Ethanol < 10 mg/dL
[2022-09-21 02:12] LABS: B Type Natriuretic Peptide 638 pg/mL (<100); SLIDE REVIEW VERIFIED
[2022-09-21 02:18] LABS: Alanine Aminotransferase 14 U/L (0-31); Albumin Level 3.5 g/dL (3.5-5.0); Alkaline Phosphatase 91 U/L (39-117); Anion Gap 13 (12-20); Aspartate Amino Transferase 23 U/L (5-31); Bilirubin Total 0.8 mg/dL (0.0-1.0); Blood Urea Nitrogen 18 mg/dL (9-16); Calcium 8.8 mg/dL (8.4-10.2); Carbon Dioxide 25 mmol/L (22-29); Chloride 104 mmol/L (96-108); Creatinine Clr Calc Pharmacy 66.8; Estimated Glomerular Filt Rate > 60; Glucose Random 94 mg/dL (60-115); Potassium 4.8 mmol/L (3.3-5.1); Sodium 137 mmol/L (135-145); Total Protein 6.7 g/dL (6.5-8.0)
--- NOTE | 2022-09-21 02:43 | ECG_ITS ---
Test Reason : SOB Blood Pressure : / mmHG Vent. Rate : 077 BPM Atrial Rate : 077 BPM P-R Int : 146 ms QRS Dur : 080 ms QT Int : 430 ms P-R-T Axes : 048 035 043 degrees QTc Int : 486 ms Normal sinus rhythm Nonspecific T wave abnormality Prolonged QT Abnormal ECG No previous ECGs available Referred By: Nickolas Hsieh Electronically Signed By:Ignacio Izaguirre
[2022-09-21] MEDS: cefTRIAXone sodium 1 GM in 0.9 % Sodium Chloride 50 ML IV (02:58)
[2022-09-21 03:11] LABS: Lactic Acid 0.9 mmol/L (0.5-2.0)
--- NOTE | 2022-09-21 03:45 | P.HPHOSP_ITS ---
History of Present Illness Date of Service: 09/21/22 Chief Complaint: Altered mentation This is a 52-year-old female with pertinent history of substance use disorder, mood disorder, COPD not on home oxygen was brought by EMS evaluation of altered mentation. Unable to obtain history from the patient as patient is very drowsy. History obtained from ER provider and chart review. Patient was found to be drowsy and hypoxemic upon ER arrival. She admitted to snorting heroin and cocaine the EMS. Patient was given naloxone in the ER. Patient was satting 85% upon arrival. Patient was complaining of cough the last few days with mucopurulent expectoration. Patient with one-word responses at the time my evaluation and is going back to sleep. Unable to have a conversation. Unable to obtain review of systems. Review of Systems Review of Systems: Yes Unobtainable due to mental status PMFSH Medical History Anxiety Depression Emphysema lung Hiatal hernia Pertinent family history: Unable to obtain Social History Alcohol intake: never Patient Tobacco Use Status: Current everyday Tobacco user Smoked in Last 30 Days: No Use of substances other than those prescribed or required for medical reasons: Yes Substance Use Type: Crack/Cocaine, Heroin and Marijuana Substance Use Frequency: Chronic Longstanding Advance Directives: No Advance Directives Information Provided: Yes Patient : No Meds Allergies Allergy/AdvReac Type Severity Reaction Status Date / Time No Known Allergies Allergy Verified 02/22/22 15:48 Active Medications: Current Medications Albuterol/Ipratropium (Albuterol/Iprat 2.5/0.5mg 3 Ml Ampul.Neb) 3 ml INHALE RQ4H WHILE AWAKE RENETTA Albuterol/Ipratropium (Albuterol/Iprat 2.5/0.5mg 3 Ml Ampul.Neb) 3 ml INHALE Q4H PRN PRN Reason: Wheezing Azithromycin 500 mg/ Sodium (Chloride) 250 mls @ 125 mls/hr IV ONCE ONE Stop: 09/21/22 04:46 Last Admin: 09/21/22 03:40 Dose: 125 mls/hr Sodium Chloride (Ns) 500 mls @ 500 mls/hr IV .Q1H ONE Stop: 09/21/22 04:40 Ampicillin Sodium/Sulbactam (Sodium 3 gm/ Sodium Chloride) 100 mls @ 200 mls/hr IV Q6H [facility] Methylprednisolone Sodium Succinate (Methylprednisolone Sod Succ 40 Mg/Ml Vial) 40 mg IVPUSH Q12H [facility] Home Medications Medication Instructions Recorded Confirmed Last Taken Type acetaminophen 650 mg 650 mg PO Q12H 02/22/22 02/22/22 Unknown History tablet,extended release albuterol sulfate 90 mcg/actuation 90 mcg inhalation Q4H PRN Wheezing 02/22/22 02/22/22 Unknown History aerosol inhaler (ProAir HFA) amitriptyline 25 mg tablet 75 mg PO DAILY 02/22/22 02/22/22 Unknown History cetirizine 10 mg tablet 1 tab PO DAILY 02/22/22 02/22/22 Unknown History fluticasone fur. 100 mcg-umeclid 1 puff inhalation DAILY 02/22/22 02/22/22 Unknown History 62.5 mcg-vilant 25 mcg inhalat.powder (Trelegy Ellipta) hydroxyzine pamoate 25 mg capsule 1 cap PO BID 02/22/22 02/22/22 Unknown History methadone 10 mg/mL oral 180 mg 02/22/22 Unknown History concentrate (Methadone Intensol) omeprazole 20 mg capsule,delayed 20 mg PO BID 02/22/22 02/22/22 Unknown History release pregabalin 200 mg capsule 1 cap PO TID 02/22/22 02/22/22 Unknown History trazodone 150 mg tablet 1 tab PO BEDTIME 02/22/22 02/22/22 Unknown History venlafaxine 150 mg 1 cap PO DAILY 02/22/22 02/22/22 Unknown History capsule,extended release 24 hr Physical Exam Vital Signs and Narrative: Vital Signs: Last Vital Signs Temp 98.3 F 09/21/22 02:47 Pulse 78 09/21/22 02:47 Resp 19 09/21/22 02:47 BP 112/61 09/21/22 02:47 Pulse Ox 98 09/21/22 02:47 O2 Del Method Nasal Cannula 09/21/22 02:47 O2 Flow Rate 2 09/21/22 02:47 BMI result Body Mass Index 24.0 Middle-aged female lying in bed in no distress on supplemental oxygen Neck supple, no JVD Regular rate and rhythm, S1-S2 heard Right-sided crackles with bilateral wheezing Abdomen soft nontender, no guarding, no rigidity Patient is drowsy and awakens to verbal stimulus, falls back asleep mid conversation, occasionally appropriate one-word responses No pedal edema Results Labs 09/21/22 01:46 09/21/22 01:46 Labs: Laboratory Results - last 24 hr 09/21/22 09/21/22 09/21/22 01:39 01:46 01:46 MCV 78.7 L MCH 24.6 L MCHC 31.2 RDW 19.6 H Plt Count 374 MPV 10.0 Immature Gran % (Auto) 0.9 H Neut % (Auto) 85.2 H Lymph % (Auto) 9.6 L [place] % (Auto) 3.7 Eos % (Auto) 0.1 Baso % (Auto) 0.5 Lymph # (Auto) 2.7 [place] # (Auto) 1.0 Eos # (Auto) 0.0 Baso # (Auto) 0.2 Abs Immat Gran (auto) 0.25 H Absolute Neuts (auto) 23.9 H Absolute Nucleated RBC 0.000 Nucleated RBC % (auto) 0.0 Smear Tech's Comments VERIFIED VBG pH VBG pCO2 VBG pO2 VBG HCO3 VBG O2 Saturation VBG Base Excess Anion Gap 13 Estim Creat Clear Calc 66.8 Estimated GFR > 60 Random Glucose 94 Lactic Acid Calcium 8.8 Total Bilirubin 0.8 AST 23 ALT 14 Alkaline Phosphatase 91 Troponin I High Sens B-Natriuretic Peptide Total Protein 6.7 Albumin 3.5 Ethyl Alcohol COVID-19 ([facility]KAR) Negative COVID-19 Clin Com See Note 09/21/22 09/21/22 09/21/22 01:46 01:46 01:47 MCV MCH MCHC RDW Plt Count MPV Immature Gran % (Auto) Neut % (Auto) Lymph % (Auto) [place] % (Auto) Eos % (Auto) Baso % (Auto) Lymph # (Auto) [place] # (Auto) Eos # (Auto) Baso # (Auto) Abs Immat Gran (auto) Absolute Neuts (auto) Absolute Nucleated RBC Nucleated RBC % (auto) Smear Tech's Comments VBG pH 7.48 H VBG pCO2 38 VBG pO2 43 VBG HCO3 29 H VBG O2 Saturation 70.0 VBG Base Excess 5.8 Anion Gap Estim Creat Clear Calc Estimated GFR Random Glucose Lactic Acid Calcium Total Bilirubin AST ALT Alkaline Phosphatase Troponin I High Sens B-Natriuretic Peptide 638 H Total Protein Albumin Ethyl Alcohol < 10 COVID-19 (OSKAR) COVID-19 Clin Com 09/21/22 09/21/22 02:54 02:54 MCV MCH MCHC RDW Plt Count MPV Immature Gran % (Auto) Neut % (Auto) Lymph % (Auto) [place] % (Auto) Eos % (Auto) Baso % (Auto) Lymph # (Auto) [place] # (Auto) Eos # (Auto) Baso # (Auto) Abs Immat Gran (auto) Absolute Neuts (auto) Absolute Nucleated RBC Nucleated RBC % (auto) Smear Tech's Comments VBG pH VBG pCO2 VBG pO2 VBG HCO3 VBG O2 Saturation VBG Base Excess Anion Gap Estim Creat Clear Calc Estimated GFR Random Glucose Lactic Acid 0.9 Calcium Total Bilirubin AST ALT Alkaline Phosphatase Troponin I High Sens 15.0 B-Natriuretic Peptide Total Protein Albumin Ethyl Alcohol COVID-19 (OSKAR) COVID-19 Clin Com Imaging Radiologist's Impressions: Impressions Chest X-Ray 09/21/22 01:22 IMPRESSION: No consolidation. Bronchial wall thickening can be seen with a small airways process such as asthma or atypical/viral infection. Chest CT 09/21/22 03:13 IMPRESSION: Airspace opacities in the lung apices as well as in the right lower lobe. This is concerning for pneumonia. Fleischner guidelines were followed. Assessment and Plan (1) Acute respiratory failure with hypoxia: Status: Acute Plan This is a 52-year-old female with pertinent history of substance use disorder, mood disorder, COPD not on home oxygen was brought by EMS evaluation of altered mentation. #. Acute toxic encephalopathy in the setting of substance use disorder: Monitor mentation over time. Monitor for withdrawals. Consulting addiction team #. Sepsis and acute hypoxemic respiratory failure due to right-sided pneumonia: Concern for aspiration in the setting of above. Initiating empiric IV Unasyn. Resuscitated with IV crystalloids. Lactic acid and blood culture obtained. Sputum culture pending #. Acute exacerbation of COPD in the setting of above: Scheduled and p.r.n. DuoNebs. Continue supplemental oxygen and wean as tolerated, maintain oxygen saturation greater than 88%. Initiating systemic steroids #. Mood disorder: Continue home mood stabilizers once no longer NPO #. Microcytic anemia: Obtaining iron panel #. Elevated BNP: No pedal or pulmonary edema. Obtaining echo patient with patient with cocaine use disorder Med rec pending DVT prophylaxis: Lovenox 40 mg daily Full code NPO until mentation improves Admit as inpatient and will require two night minimum hospital stay for supplemental oxygen and IV antibiotics Time Spent With Patient Time: Total time managing care of this patient today ____ minutes. Quality Stroke Does the patient have a stroke diagnosis?: No VTE Prior VTE?: No VTE Risk Level:: Medical - moderate - high VTE Device Contraindication: Treatment Not Indicated VTE Drug Contraindication: N/A - Med Ordered
[2022-09-21 03:50] LABS: Appearance Urine Clear; Color Urine Yellow; Glucose Urine UA Negative (Negative); Leukocyte Esterase Urine Negative (Negative); Nitrite Urine Negative (Negative); PH 7.5 (5.0-9.0); Urine Blood Negative (Negative); Urine Ketones Negative (Negative); Urine Protein Negative (Neg-Trace)
[2022-09-21 04:01] LABS: Amphetamine Screen Urine Not Detected (Not Detect); Barbiturates, Urine Not Detected (Not Detect); Benzodiazepines Screen Urine Not Detected (Not Detect); Cannabinoid Screen Urine Not Detected (Not Detect); Cocaine Screen Urine POSITIVE (Not Detect); Fentanyl, urine POSITIVE (Not Detect); Opiate Screen Urine Not Detected (Not Detect); Phencyclidine Screen Urine Not Detected (Not Detect)
[2022-09-21] MEDS: 0.9 % Sodium Chloride 500 ML IV (04:02)
[2022-09-21] MEDS: methylPREDNISolone Sod Succ 40 MG/ML VIAL IVPUSH ×2 (04:03→16:15)
[2022-09-21] MEDS: Ampicillin Sodium/Sulbactam Na 3 GM in 0.9 % Sodium Chloride 100 ML IV ×4 (04:03→21:46)
[2022-09-21 04:06] LABS: IDNOW Serial# 6674DD1D; Influenza A Negative (Negative); Influenza B2 Negative (Negative)
--- NOTE | 2022-09-21 04:06 | PC.NURSE ---
per dr owens hospitalist hold azithromycin. per md administer ampicillin according to jul. this rn medicated pt according to jul. documented accordingly in mar
[2022-09-21 04:12] LABS: Iron 28 mcg/dL (30-160); Percent Iron Saturation 10 % (15-50); Total Iron Binding Capacity 269 mcg/dL (228-428); Unsaturated Iron Binding 241 ug/dL
--- NOTE | 2022-09-21 04:49 | PC.NURSE ---
late entry- pt moved into ed bed 9 from ed 6h. 20 g IV placed in L Ac. pt medicated according to mar with IVP narcan 0.4mg. pt placed on painting contractor RT called to bedside. pt appeared to be more awake and able to answer questions after administration of narcan.
[2022-09-21 06:58] LABS: Basophils Absolute Auto 0.1 X10*3/uL (0.0-0.2); Basophils Percent Auto 0.5 % (0-2); Eosinophils Percent Auto 0.1 % (0-4); Hematocrit 31.6 % (37.0-47.0); Imm Gran Abs Auto 0.18 X10*3/uL (0.00-0.03); Imm Gran Pct Auto 0.9 % (0.0-0.4); Lymphocytes Absolute Auto 0.8 X10*3/uL (1.2-4.9); Lymphocytes Percent Auto 3.6 % (20-40); MANUAL DIFF FLAG SCAN; Mean Corpuscular HGB Conc 31.6 g/dl (31.0-35.0); Mean Platelet Volume 10.3 fL (9.4-12.3); Monocytes Absolute Auto 0.2 X10*3/uL (0.1-1.2); Neutrophils Absolute Auto 19.7 x10*3/uL (2.0-8.3); Neutrophils Percent Auto 93.9 % (45-73); Platelet Count 355 X10*3/uL (160-400); Red Cell Distribution Width 19.5 % (11.0-16.0); SCAN SMEAR FLAG 1; White Blood Count 20.9 X10*3/uL (4.8-10.8)
--- NOTE | 2022-09-21 07:00 | CA_ITS ---
Transthoracic Echocardiogram Patient (Last, First, Middle): Scarlett Palmer, Gender: Female Date of : 1970 Age: 52 Procedure Date: 09/21/2022 Procedure Type: Transthoracic Echocardiogram Location: ER Height: 162.56 cm Weight: 63.5 kg BSA: 1.68 m2 Heart Rate: 60 bpm BP: 140 / 81 mmHg Poultry Husbandry Teacher: SB Referring MD: Ruben Wang MD Symptoms: ?chf Study Quality: Adequate w contrast ECG Rhythm: Sinus Conclusions: - Normal left ventricular size and systolic function. There is mildly increased left ventricular wall thickness. The visually estimated ejection fraction is between 60-65%. - Normal right ventricular cavity size and systolic function. - Mildly elevated right atrial pressure. Mild pulmonary hypertension is present. - There is mild dilatation of the ascending aorta measuring 3.40 cm. Findings Procedure Information Contrast agent, definity, is being given per protocol without apparent complications. Left Ventricle Normal left ventricular size and systolic function. There is mildly increased left ventricular wall thickness. The visually estimated ejection fraction is between 60-65%. There is no evidence of regional wall motion abnormalities. Abnormal diastolic function is noted. Spectral Doppler is indicative of a pseudonormal filling pattern. E/E prime ratio is between 8 and 15 consistent with indeterminate filling pressures. Right Ventricle Normal right ventricular cavity size and systolic function. Atria The left atrium is mildly dilated. The right atrium is normal in size. Aortic Valve Normal aortic valve structure and function. There is no aortic valve stenosis. There is no aortic valve regurgitation. Mitral Valve Normal mitral valve structure and function. There is trace mitral valve regurgitation. There is no mitral valve stenosis. Pulmonic Valve Normal pulmonic valve structure and function. There is no pulmonic valve regurgitation. Tricuspid Valve Normal tricuspid valve structure. There is mild tricuspid valve regurgitation. The right ventricular systolic pressure is 40 mmHg. Mildly elevated right atrial pressure. Mild pulmonary hypertension is present. Great Vessels There is mild dilatation of the ascending aorta measuring 3.40 cm. The visualized portions of the pulmonary artery and branches are normal. Venous The inferior vena cava is normal in size and collapses less than 50% with inspiration. Pericardium/Pleural There is no evidence of pericardial effusion. Prior Study Comparison No prior study available for comparison. Measurements 2D Linear Measurements IVSd: 1.00 0.6-0.9/0.6-1.0 cm LVIDd: 4.88 3.9-5.3/4.2-5.9 cm LVIDd Index: 2.90 2.4-3.2/2.2-3.1 cm/m2 LVIDs: 2.75 2.0-3.6 cm LVPWd: 0.91 0.7-1.1 cm LA Diam: 4.00 2.7-3.8/3.0-4.0 cm LAIDs Index: 2.38 1.5-2.3 cm/m2 LV Mass: 204.56 67-162/88-224 g LV Mass Index: 121.76 43-95/49-115 g/m2 LVOT Diam: 2.10 3.0+(-)1.3 cm 2D Systolic Function EF 4C: 66.40 >55% EF 2C: 80.90 >55% EF BiP: 74.70 >55% Mitral Valve MV Pk E: 0.87 MV PK A: 0.92 MV Decel Time: 243.00 E/A: 1.00 E'Lateral: 8.81 E'Medial: 5.77 E/E' Med: 15.10 E/E' Lat: 9.90 PHT: 71.00 MVA PHT: 3.10 Decel [place]: 3.60 Aortic Valve AoV Pk Curt: 1.23 AoV Pk Grad: 6.00 ADOLFO: 3.00 LVOT LVOT Pk Curt: 1.07 LVOT Mn Curt: 0.75 LVOT VTI: 0.28 LVOT Pk Grad: 5.00 LVOT Mn Grad: 2.00 LVOT Diam: 2.10 LVOT Area: 3.46 Diastolic Function MV Pk E: 0.87 MV Pk A: 0.92 E/A: 1.00 E'Medial: 5.77 E/E' Med: 15.10 E' Laterial: 8.81 E/E' Lat: 9.90 Right Ventricle TAPSE (mm): 19.90 TVS' Curt: 12.30 Tricuspid Valve TR Pk Curt: 2.78 TR Pk Grad: 31.00 RA Press: 8.00 RVSP: 40.00 Great Vessels Aorta Sinus of Valsalva: 2.90 2.0-3.5 cm Ao Asc: 3.40 2.1-3.4 cm Pulmonary Veins Pulm Vein S/D 1.20 Pulmonary Valve PV Pk Curt: 0.92 Peak PV Grad: 3.00 Updated in Other Vendor System with Status of Final Ignacio Izaguirre MD electronically signed on 09/21/2022 10:45:35 AM with status of Final
[2022-09-21 07:12] LABS: Anion Gap 11 (12-20); Blood Urea Nitrogen 15 mg/dL (9-16); Calcium 8.8 mg/dL (8.4-10.2); Carbon Dioxide 25 mmol/L (22-29); Chloride 109 mmol/L (96-108); Creatinine Clr Calc Pharmacy 79.1; Estimated Glomerular Filt Rate > 60; Glucose Random 112 mg/dL (60-115); Potassium 4.7 mmol/L (3.3-5.1); Sodium 140 mmol/L (135-145)
--- NOTE | 2022-09-21 07:12 | PC.NURSE ---
assumed care of this pt at 0700. resting/sleeping on stretcher with what appears to be restless legs. rr even/unlabored. wctm
[2022-09-21] MEDS: Albuterol/Iprat 2.5/0.5MG 3 ML AMPUL.NEB INHALE ×3 (08:14→19:59)
--- NOTE | 2022-09-21 10:10 | PHA.MEDREC ---
Pharmacy Consult ? Medication Reconciliation Pharmacy has completed the medication reconciliation. Patient unarousable at bedside; called Perlita Galicia who faxed recent discharge med list from 09/11/22. Pt to be taking TDD 225mg venlafaxine, sheet had dose of 180mg methadone but did annotate that they had planned to continually decrease methadone and switch to alternate agent for opioid dependence due to prolonged QTc.
--- NOTE | 2022-09-21 10:39 | MHC.RECOVRN ---
This publications writer completed and faxed MTD verficiation to pharmacy, verified, patients last dose of 180mg MTD, 09/20/22 at 10:23am.
--- NOTE | 2022-09-21 10:49 | PC.NURSE ---
pt awake, alert, and asking for food. per dr. altamirano, pt on regular diet and allowed to eat. was given remigio crackers with peanut butter and a coffee. pt does not eat meat and diet order for vegetarian lunch completed. resting quietly. vss. wctm
--- NOTE | 2022-09-21 10:49 | HE.PHANOTE ---
Re: methadone verification last dose of 180 mg given on 09/20/22 @1023 at [facility]. verified by Sharon De La Cruz on 09/21/22 with thierry @[phone]
--- NOTE | 2022-09-21 11:57 | P.EN_ITS ---
Event Note Date of Service: 09/21/22 Event Note: 52-year-old female with pertinent history of substance use disorder, mood disorder, COPD not on home oxygen was brought by EMS evaluation of altered mentation. #.? Acute toxic encephalopathy in the setting of substance use disorder:? patient awake alert this morning teary eyes, unable to recall what happened and does not wish to discuss at this time U tox positive for cocaine and fentanyl as per patient just use once 2 days ago started on regular diet #.? Sepsis and acute hypoxemic respiratory failure due to right-sided pneumonia:? Concern for aspiration in the setting of above.? continue IV Unasyn, IV fluid.?Lactic acid normal will follow blood culture and clinical course #.? Acute exacerbation of COPD: continue scheduled and p.r.n. DuoNebs, IV steroids, Continue supplemental oxygen and wean as tolerated, maintain oxygen s aturation greater than 88%.? #.? Mood disorder: resume home mood stabilizers , hold amitriptyline #.? Microcytic anemia: iron studies not consistent with iron deficiency anemia, although some component of iron deficiency was placed on iron supplement #.? Elevated BNP:? No pedal or pulmonary edema. follow echo # history of substance abuse on methadone will verify dosage. # tobacco use disorder continue nicotine gum as needed for cravings. Med rec done DVT prophylaxis: Lovenox 40 mg daily Full code patient will need continued inpatient hospitalization for supplemental oxygen and IV antibiotics Time Spent With Patient Time: Total time managing care of this patient today ____ minutes.
[2022-09-21] MEDS: methADONE HCl 20 MG/2 ML ORAL.CONC 180 MG PO (13:07)
--- NOTE | 2022-09-21 14:08 | PC.NURSE ---
Pt ambulated to and from restroom. Ate 50% of lunch and spoke to her friend on the phone. Will be sent over to overflow
[2022-09-21] MEDS: Pregabalin 200 MG CAPSULE PO ×2 (16:14→20:59)
[2022-09-21] MEDS: hydrOXYzine HCL 50 MG TABLET PO (16:14)
[2022-09-21] MEDS: Acetaminophen 325 MG TABLET 650 MG PO ×2 (16:14→22:30)
[2022-09-21] MEDS: 0.9 % Sodium Chloride Flush 3 ML SYRINGE IVFLUSH ×2 (16:16→20:59)
--- NOTE | 2022-09-21 16:34 | MHC.RECOVRN ---
This staff writer met w/ patient, patient was laying in dimly lit room, watching television. Patient reports feels better after receiving MTD dose. T/W observed patient no longer diaphoretic, resting comfortably. Patient request the Addiction/Recovery team to return tomorrow as patient is feeling tired and would like to rest after a hectic day. T/W agreed.
--- NOTE | 2022-09-21 18:20 | PC.NURSE ---
Pt c/o constipation PRN Mirilax, Colace, and enema given this shift, pt was able to produce 1 small BM at 1821. Abd semi firm, distended, + bs, pt continues to endorse abd pain, relived with PRN morphine.
[2022-09-21] MEDS: traZODone HCL 100 MG TABLET PO (20:59)
[2022-09-22] VITALS (9 sets, daily range): BP systolic 154–173; BP diastolic 84–90; PULSE 53–70; RESP 18; TEMP 35.9–36.5; O2SAT 95–97
[2022-09-22] MEDS: Ampicillin Sodium/Sulbactam Na 3 GM in 0.9 % Sodium Chloride 100 ML IV ×4 (03:34→21:22)
[2022-09-22] MEDS: methylPREDNISolone Sod Succ 40 MG/ML VIAL IVPUSH ×2 (03:34→15:22)
[2022-09-22] MEDS: Acetaminophen 325 MG TABLET 650 MG PO ×3 (05:37→19:33)
[2022-09-22] MEDS: Omeprazole 40 MG CAPSULE.DR PO (05:37)
[2022-09-22] MEDS: methADONE HCl 20 MG/2 ML ORAL.CONC 180 MG PO (07:33)
[2022-09-22] MEDS: Pregabalin 200 MG CAPSULE PO ×3 (07:34→20:04)
[2022-09-22] MEDS: Venlafaxine HCl ER 150 MG CAP.ER.24H PO (07:34)
[2022-09-22] MEDS: Venlafaxine HCL 25 MG TABLET 75 MG PO (07:34)
[2022-09-22] MEDS: 0.9 % Sodium Chloride Flush 3 ML SYRINGE IVFLUSH ×3 (07:34→20:09)
[2022-09-22] MEDS: Albuterol/Iprat 2.5/0.5MG 3 ML AMPUL.NEB INHALE ×4 (07:47→19:34)
--- NOTE | 2022-09-22 11:21 | MHC.CM.PN ---
pt reports not having a place to live when dcd pt to bve seen by care team prior to dc ,dc date uncertain may need halfway
[2022-09-22] MEDS: hydrOXYzine HCL 50 MG TABLET PO (11:30)
--- NOTE | 2022-09-22 12:53 | P.PNIM_ITS ---
Subjective Subjective Date of Service: 09/22/22 Interval History: Sitting on bed offers no acute complaints, confusion resolved, denies chest pain, no shortness of breath, no fevers, is compliant with methadone admits to using cocaine only once, and is willing to talk to Addiction Team, no overnight events. Review of Systems Review of Systems: Yes all other systems are reviewed and are negative Physical Exam Vital Signs: Vital Signs: Last Vital Signs Temp 97.7 F 09/22/22 07:34 Pulse 54 09/22/22 11:13 Resp 18 09/22/22 11:13 BP 168/90 H 09/22/22 07:32 Pulse Ox 95 09/22/22 07:34 O2 Del Method Room Air 09/22/22 07:34 O2 Flow Rate 1 09/21/22 07:43 BMI result Body Mass Index 25.3 Const: Other: General awake alert x3, in no acute distress. Neck supple no JVD. CVS regular rate rhythm, Respiratory lungs bilateral basilar rhonchi,no respiratory distress, no wheeze Gastrointestinal abdomen soft, nontender, bowel sounds audible, no guarding , no rigidity. Extremities no edema. Neuro nonfocal Skin no rash Psych appropriate affect Objective Data Active Medications Acetaminophen (Acetaminophen 325 Mg Tablet) 650 mg PO Q6H PRN PRN Reason: Pain, Mild (Pain Scale 1-3) Last Admin: 09/22/22 11:30 Dose: 650 mg Documented By: GARTH Comments: ok to give per MD Marquez Albuterol Sulfate (Albuterol Sulfate 90 Mcg 8 Gm Inhaler) 2 puff INHALE RQ4H PRN PRN Reason: Shortness of Breath Albuterol/Ipratropium (Albuterol/Iprat 2.5/0.5mg 3 Ml Ampul.Neb) 3 ml INHALE RQ4H WHILE AWAKE [facility] Last Admin: 09/22/22 11:12 Dose: 3 ml Documented By: MOON Albuterol/Ipratropium (Albuterol/Iprat 2.5/0.5mg 3 Ml Ampul.Neb) 3 ml INHALE Q4H PRN PRN Reason: Wheezing Enoxaparin Sodium (Enoxaparin Sodium 40 Mg/0.4 Ml Syringe) 40 mg SUBCUT Q24H [facility] Last Admin: 09/22/22 07:40 Dose: Not Given Documented By: GARTH Non-Admin Reason: Patient Refused Hydroxyzine HCl (Hydroxyzine Hcl 50 Mg Tablet) 50 mg PO DAILY PRN PRN Reason: Anxiety Last Admin: 09/22/22 11:30 Dose: 50 mg Documented By: GARTH Comments: Ok to give per MD Marquez Ampicillin Sodium/Sulbactam (Sodium 3 gm/ Sodium Chloride) 100 mls @ 200 mls/hr IV Q6H [facility] Last Infusion: 09/22/22 11:20 Dose: 0 mls/hr Documented By: GARTH Melatonin (Melatonin 3 Mg Tablet) 6 mg PO BEDTIME PRN PRN Reason: Insomnia Methadone HCl (Methadone Hcl 20 Mg/2 Ml Oral.Conc) 180 mg PO DAILY [facility] Last Admin: 09/22/22 07:33 Dose: 180 mg Documented By: GARTH Methylprednisolone Sodium Succinate (Methylprednisolone Sod Succ 40 Mg/Ml Vial) 40 mg IVPUSH Q12H [facility] Last Admin: 09/22/22 03:34 Dose: 40 mg Documented By: CHARLOTTE Nicotine Polacrilex (Nicotine Polacrilex Lozenge 2 Mg Lozenge) 2 mg BUCCAL QID PRN PRN Reason: Nicotine Cravings Omeprazole (Omeprazole 40 Mg Capsule.Dr) 40 mg PO DAILY@0630 [facility] Last Admin: 09/22/22 05:37 Dose: 40 mg Documented By: CHARLOTTE Ondansetron HCl (Ondansetron Hcl 4 Mg/2 Ml Vial) 4 mg IVPUSH Q8H PRN PRN Reason: Nausea and Vomiting Pharmacy Consult (Consult Rx Perform Med Rec) 1 each MISCELLANE ONCE PRN PRN Reason: Consult order Pregabalin (Pregabalin 200 Mg Capsule) 200 mg PO TID [facility] Last Admin: 09/22/22 07:34 Dose: 200 mg Documented By: GARTH Sodium Chloride (0.9 % Sodium Chloride Flush 3 Ml Syringe) 3 ml IVFLUSH QSHIFT [facility] Last Admin: 09/22/22 07:34 Dose: 3 ml Documented By: GARTH Trazodone HCl (Trazodone Hcl 100 Mg Tablet) 100 mg PO BEDTIME [facility] Last Admin: 09/21/22 20:59 Dose: 100 mg Documented By: HO.OZORALB Venlafaxine HCl (Venlafaxine Hcl Er 150 Mg Cap.Er.24h) 150 mg PO DAILY [facility] Last Admin: 09/22/22 07:34 Dose: 150 mg Documented By: GARTH Venlafaxine HCl (Venlafaxine Hcl 25 Mg Tablet) 75 mg PO DAILY [facility] Last Admin: 09/22/22 07:34 Dose: 75 mg Documented By: GARTH Labs 09/21/22 06:40 09/21/22 06:40 Microbiology Microbiology Results: Microbiology 09/21/22 02:54 Blood Culture - Preliminary Blood - Venous No growth after 24 hours. 09/21/22 02:54 Blood Culture - Preliminary Blood - Venous No growth after 24 hours. Assessment and Plan (1) Bilateral pneumonia: Status: Acute (2) COPD (chronic obstructive pulmonary disease): Status: Acute (3) Acute respiratory failure with hypoxia: Status: Acute (4) Opioid use disorder: Status: Acute Plan 52-year-old female with pertinent history of substance use disorder, mood disorder, COPD not on home oxygen was brought by EMS evaluation of altered mentation. #.? Acute toxic encephalopathy in the setting of substance use disorder:? patient awake alert this morning , no lethargy or confusion ? ? ? U tox positive for cocaine and fentanyl as per patient just use once 2 days ago being followed by recovery team. ? ? ? #.? Sepsis and acute hypoxemic respiratory failure due to right-sided pneumonia:? Concern for aspiration in the setting of above.? continue IV Unasyn started 09/21, Lactic acid? normal , blood culture?negative times to in 24 hours, DC IV fluids oxygenation improved now on room air finger oximetry 95 #.? Acute exacerbation of COPD: continue scheduled and p.r.n. DuoNebs,wean IV steroids, not on steroid inhalers at home. Encouraged to quit smoking will place on Breo #.? Mood disorder:? resume home mood stabilizers #.? Microcytic anemia:? iron studies not consistent with iron deficiency anemia, although some component of iron deficiency was placed on iron supplement #.? Elevated BNP:? No pedal or pulmonary edema. echo showed EF 60-65% no wall motion abnormality, abnormal diastolic function , elevated BNP likely due to pulmonary process. #? history of substance abuse on methadone # ? tobacco use disorder? continue nicotine gum as needed for cravings,councilling done. DVT prophylaxis: Lovenox 40 mg daily Full code ?patient will need continued inpatient hospitalization for supplemental oxygen and IV antibiotics Time Spent With Patient Time: Total time managing care of this patient today ____ minutes. Quality Stroke Does the patient have a stroke diagnosis?: No VTE Prior VTE?: No VTE Risk Level:: Medical - moderate - high VTE Device Contraindication: Treatment Not Indicated VTE Drug Contraindication: N/A - Med Ordered
--- NOTE | 2022-09-22 14:11 | MHC.RECOVRN ---
Met with pt in 374 to follow up and provide support. Pt sitting in bed, awake, alert, easily engages in conversation. Pt reports anxiety related to discharge planning, does not want to be discharged before the infection is all gone. Pt also reports being unstably housed as the person she was living with has . Concerned regarding where she will go after dc. Pt reports recently being at [facility] but discharged same day due to them not giving me my meds. Pt is interested in [facility] level of care. Referrals have been sent to [facility], [facility], [facility], and [facility].
--- NOTE | 2022-09-22 15:46 | P.EN_ITS ---
Event Note Date of Service: 09/22/22 Event Note: Addiction consult placed for patient Seen by home performance consultant on 09/22 and 09/23 Please see their notes for additional information Time Spent With Patient Time: Total time managing care of this patient today ____ minutes.
[2022-09-22] MEDS: ondansetron HCL 4 MG/2 ML VIAL IVPUSH (18:10)
[2022-09-22] MEDS: Ketorolac Tromethamine 30 MG/ML VIAL IVPUSH (20:04)
[2022-09-22] MEDS: Amitriptyline HCl 25 MG TABLET 75 MG PO (20:04)
[2022-09-22] MEDS: guaiFENesin 100 MG/5 ML LIQUID PO (21:21)
[2022-09-22] MEDS: traZODone HCL 100 MG TABLET PO (21:21)
[2022-09-23] VITALS (8 sets, daily range): BP systolic 156–178; BP diastolic 76–102; PULSE 62–94; RESP 16–19; TEMP 36–36.5; O2SAT 95–99
[2022-09-23] MEDS: Ampicillin Sodium/Sulbactam Na 3 GM in 0.9 % Sodium Chloride 100 ML IV ×4 (03:39→22:29)
[2022-09-23] MEDS: Acetaminophen 325 MG TABLET 650 MG PO ×3 (03:39→20:06)
[2022-09-23] MEDS: methylPREDNISolone Sod Succ 40 MG/ML VIAL IVPUSH (03:39)
[2022-09-23] MEDS: Omeprazole 40 MG CAPSULE.DR PO (06:02)
[2022-09-23] MEDS: Ketorolac Tromethamine 30 MG/ML VIAL IVPUSH ×3 (06:03→22:38)
[2022-09-23] MEDS: Albuterol/Iprat 2.5/0.5MG 3 ML AMPUL.NEB INHALE ×4 (07:45→19:46)
--- NOTE | 2022-09-23 08:50 | MHC.RECOVRN ---
Followed up with pt regarding referrals that were placed. Pt encouraged to continue calling to obtain placement upon discharge. Pt and provider aware no placement will occur over the weekend and bed availability on Sunday is not guaranteed. Pt denies questions at this time.
[2022-09-23] MEDS: Venlafaxine HCl ER 150 MG CAP.ER.24H PO (09:23)
[2022-09-23] MEDS: Venlafaxine HCL 25 MG TABLET 75 MG PO (09:23)
[2022-09-23] MEDS: Pregabalin 200 MG CAPSULE PO ×3 (09:23→20:06)
[2022-09-23] MEDS: 0.9 % Sodium Chloride Flush 3 ML SYRINGE IVFLUSH ×3 (09:24→20:07)
[2022-09-23] MEDS: methADONE HCl 20 MG/2 ML ORAL.CONC 180 MG PO (09:38)
--- NOTE | 2022-09-23 10:40 | HO.PM.IMPN ---
Subjective Subjective Date of Service: 09/23/22 Interval History: Complaining of right anterior chest wall pain due to recent rib fractures requiring hospitalization at [facility] 2 weeks ago, evaluated by trauma team, no intervention required prior to that August 14 require treatment for right sided pneumonia at [facility], complaining of nausea, vomiting, oxygenation stable on room air, no fevers, no chills, denies fever, no chills, noted to have elevated blood pressure this am. Review of Systems Review of Systems: Yes all other systems are reviewed and are negative Physical Exam Vital Signs: Vital Signs: Last Vital Signs Temp 97.1 F 09/23/22 03:35 Pulse 67 09/23/22 07:47 Resp 16 09/23/22 07:47 BP 178/94 H 09/23/22 03:41 Pulse Ox 96 09/23/22 03:35 O2 Del Method Room Air 09/23/22 03:35 O2 Flow Rate 96 09/22/22 19:12 BMI result Body Mass Index 25.3 Const: Other: General awake alert x3, in no acute distress.? Neck? supple no JVD. CVS? regular rate rhythm, Respiratory lungs bilateral basilar coarse bsi,no respiratory distress, no wheeze Gastrointestinal abdomen soft, nontender, bowel sounds audible, no guarding , no rigidity. Tenderness right lower chest with palpation Extremities no? edema. Neuro nonfocal Skin no rash Psych appropriate affect Objective Data Active Medications Acetaminophen (Acetaminophen 325 Mg Tablet) 650 mg PO Q6H PRN PRN Reason: Pain, Mild (Pain Scale 1-3) Last Admin: 09/23/22 03:39 Dose: 650 mg Documented By: CHRISTI Albuterol Sulfate (Albuterol Sulfate 90 Mcg 8 Gm Inhaler) 2 puff INHALE RQ4H PRN PRN Reason: Shortness of Breath Albuterol/Ipratropium (Albuterol/Iprat 2.5/0.5mg 3 Ml Ampul.Neb) 3 ml INHALE RQ4H WHILE AWAKE [facility] Last Admin: 09/23/22 07:45 Dose: 3 ml Documented By: CLAUDIA Albuterol/Ipratropium (Albuterol/Iprat 2.5/0.5mg 3 Ml Ampul.Neb) 3 ml INHALE Q4H PRN PRN Reason: Wheezing Amitriptyline HCl (Amitriptyline Hcl 25 Mg Tablet) 75 mg PO BEDTIME [facility] Last Admin: 09/22/22 20:04 Dose: 75 mg Documented By: CHRISTI Enoxaparin Sodium (Enoxaparin Sodium 40 Mg/0.4 Ml Syringe) 40 mg SUBCUT Q24H [facility] Last Admin: 09/23/22 09:24 Dose: Not Given Documented By: SHRUTHI Non-Admin Reason: Patient Refused Guaifenesin (Guaifenesin 100 Mg/5 Ml Liquid) 5 ml PO Q6H PRN PRN Reason: cough Last Admin: 09/22/22 21:21 Dose: 5 ml Documented By: CHRISTI Hydroxyzine HCl (Hydroxyzine Hcl 50 Mg Tablet) 50 mg PO DAILY PRN PRN Reason: Anxiety Last Admin: 09/22/22 11:30 Dose: 50 mg Documented By: GARTH Comments: Ok to give per MD Marquez Ampicillin Sodium/Sulbactam (Sodium 3 gm/ Sodium Chloride) 100 mls @ 200 mls/hr IV Q6H [facility] Last Infusion: 09/23/22 10:02 Dose: 0 mls/hr Documented By: SHRUTHI Ketorolac Tromethamine (Ketorolac Tromethamine 30 Mg/Ml Vial) 30 mg IVPUSH Q6H PRN PRN Reason: Pain, Moderate (Pain Scale 4-6 Last Admin: 09/23/22 06:03 Dose: 30 mg Documented By: CHRISTI Melatonin (Melatonin 3 Mg Tablet) 6 mg PO BEDTIME PRN PRN Reason: Insomnia Methadone HCl (Methadone Hcl 20 Mg/2 Ml Oral.Conc) 180 mg PO DAILY [facility] Last Admin: 09/23/22 09:38 Dose: 180 mg Documented By: SHRUTHI Nicotine Polacrilex (Nicotine Polacrilex Lozenge 2 Mg Lozenge) 2 mg BUCCAL QID PRN PRN Reason: Nicotine Cravings Omeprazole (Omeprazole 40 Mg Capsule.) 40 mg PO DAILY@0630 [facility] Last Admin: 09/23/22 06:02 Dose: 40 mg Documented By: CHRISTI Ondansetron HCl (Ondansetron Hcl 4 Mg/2 Ml Vial) 4 mg IVPUSH Q8H PRN PRN Reason: Nausea and Vomiting Last Admin: 09/22/22 18:10 Dose: 4 mg Documented By: GARTH Pharmacy Consult (Consult Rx Perform Med Rec) 1 each MISCELLANE ONCE PRN PRN Reason: Consult order Pregabalin (Pregabalin 200 Mg Capsule) 200 mg PO TID [facility] Last Admin: 09/23/22 09:23 Dose: 200 mg Documented By: SHRUTHI Sodium Chloride (0.9 % Sodium Chloride Flush 3 Ml Syringe) 3 ml IVFLUSH QSHIFT [facility] Last Admin: 09/23/22 09:24 Dose: 3 ml Documented By: SHRUTHI Trazodone HCl (Trazodone Hcl 100 Mg Tablet) 100 mg PO BEDTIME [facility] Last Admin: 09/22/22 21:21 Dose: 100 mg Documented By: CHRISTI Venlafaxine HCl (Venlafaxine Hcl Er 150 Mg Cap.Er.24h) 150 mg PO DAILY [facility] Last Admin: 09/23/22 09:23 Dose: 150 mg Documented By: SHRUTHI Venlafaxine HCl (Venlafaxine Hcl 25 Mg Tablet) 75 mg PO DAILY [facility] Last Admin: 09/23/22 09:23 Dose: 75 mg Documented By: SHRUTHI Labs 09/21/22 06:40 09/21/22 06:40 Microbiology Microbiology Results: Microbiology 09/21/22 02:54 Blood Culture - Preliminary Blood - Venous No growth after 48 hours. 09/21/22 02:54 Blood Culture - Preliminary Blood - Venous No growth after 48 hours. 09/22/22 10:54 Gram Stain - Final Sputum - Expectorated Sputum Culture - Final Assessment and Plan (1) Bilateral pneumonia: Status: Acute (2) COPD (chronic obstructive pulmonary disease): Status: Acute (3) Acute respiratory failure with hypoxia: Status: Acute (4) Opioid use disorder: Status: Acute Plan 52-year-old female with pertinent history of substance use disorder, mood disorder, COPD not on home oxygen was brought by EMS evaluation of altered mentation. #.? Acute toxic encephalopathy in the setting of substance use disorder:? resolved, no lethargy or confusion ? ? ? U tox positive for cocaine and fentanyl ,being followed by recovery team, outpatient rehab referrals provided to patient, patient is aware no placement will echo or the weekend and bed availability on Mondays not guaranteed. ? ? ? #.? Sepsis and acute hypoxemic respiratory failure due to right-sided pneumonia:? Concern for aspiration in the setting of above,on IV Unasyn started 09/21, Lactic acid? normal , blood culture?negative , oxygenation improved now on room air finger oximetry 95 Old record reviewed from [facility] patient was admitted to [facility] on August 14 and treated for right-sided pneumonia, subsequently readmitted to [facility] on September 08 after a fall and diagnosed to have right-sided 5th 6 7 and 8th rib fractures likely due to intoxication and fall, no intervention was required Will transition to by mouth antibiotic add incentive spirometry Leukocytosis due to steroids will follow CBC #.? Acute exacerbation of COPD: continue scheduled and khanh Garcia dc IV steroids, not on steroid inhalers at home. Encouraged to quit smoking will place on Breo #.? Mood disorder:? resume home mood stabilizers #.? Microcytic anemia:? iron studies not consistent with iron deficiency anemia, although some component of iron deficiency was placed on iron supplement #.? Elevated BNP:? No pedal or pulmonary edema. echo showed EF 60-65% no wall motion abnormality, abnormal diastolic function , elevated BNP likely due to pulmonary process. #? history of substance abuse on methadone # ? tobacco use disorder? continue nicotine gum as needed for cravings,councilling done. Patient declined nicotine patch. # right-sided chest pain due to recent rib fractures recommend Motrin as needed and incentive spirometry. # elevated blood pressures with no history of hypertension, likely due to withdrawal from illicit drugs, steroids anxiety hold off on antihypertensive follow BP DVT prophylaxis: Lovenox 40 mg daily Full code ?patient will need continued inpatient hospitalization for treatment of pneumonia and safe discharge. Time Spent With Patient Time: Total time managing care of this patient today ____ minutes. Quality Stroke Does the patient have a stroke diagnosis?: No VTE Prior VTE?: No VTE Risk Level:: Medical - moderate - high VTE Device Contraindication: Treatment Not Indicated VTE Drug Contraindication: N/A - Med Ordered
[2022-09-23] MEDS: Ibuprofen 400 MG TABLET PO (13:15)
[2022-09-23] MEDS: hydrOXYzine HCL 50 MG TABLET PO (13:23)
[2022-09-23] MEDS: ondansetron HCL 4 MG/2 ML VIAL IVPUSH (13:23)
[2022-09-23] MEDS: traZODone HCL 100 MG TABLET PO (20:07)
[2022-09-23] MEDS: guaiFENesin 100 MG/5 ML LIQUID 10 ML PO (20:07)
[2022-09-23] MEDS: Amitriptyline HCl 25 MG TABLET 75 MG PO (20:07)
[2022-09-24] VITALS (7 sets, daily range): BP systolic 144–194; BP diastolic 93–120; PULSE 61–99; RESP 14–18; TEMP 36–36.5; O2SAT 93–100
[2022-09-24] MEDS: Throat Lozenge, Medicated LOZENGE 1 LOZENGE MUCOUS MEM ×2 (03:03→08:54)
[2022-09-24] MEDS: Ampicillin Sodium/Sulbactam Na 3 GM in 0.9 % Sodium Chloride 100 ML IV (03:04)
[2022-09-24] MEDS: Omeprazole 40 MG CAPSULE.DR PO (05:50)
[2022-09-24] MEDS: Ketorolac Tromethamine 30 MG/ML VIAL IVPUSH ×3 (05:56→19:18)
[2022-09-24 06:55] LABS: Hematocrit 32.5 % (37.0-47.0); Mean Corpuscular HGB Conc 30.8 g/dl (31.0-35.0); Mean Corpuscular Hemoglobin 24.7 pg (27.0-33.0); Mean Corpuscular Volume 80.2 fL (80.0-98.0); Mean Platelet Volume 10.2 fL (9.4-12.3); Platelet Count 431 X10*3/uL (160-400); Red Blood Count 4.05 X10*6/uL (4.20-5.50); White Blood Count 18.9 X10*3/uL (4.8-10.8)
[2022-09-24 07:12] LABS: Anion Gap 11 (12-20); Blood Urea Nitrogen 23 mg/dL (9-16); Calcium 9.1 mg/dL (8.4-10.2); Carbon Dioxide 31 mmol/L (22-29); Chloride 102 mmol/L (96-108); Creatinine Clr Calc Pharmacy 67.2; Estimated Glomerular Filt Rate > 60; Glucose Random 72 mg/dL (60-115); Sodium 140 mmol/L (135-145)
[2022-09-24] MEDS: Albuterol/Iprat 2.5/0.5MG 3 ML AMPUL.NEB INHALE ×2 (08:04→11:33)
[2022-09-24] MEDS: Fluticasone/Vilanterol 100/25 BLST.W.DEV 1 PUFF INHALE (08:04)
[2022-09-24] MEDS: guaiFENesin 100 MG/5 ML LIQUID 10 ML PO ×3 (08:54→20:20)
[2022-09-24] MEDS: Amoxicillin/Potassium Clav 875 MG TABLET PO ×2 (08:54→19:19)
[2022-09-24] MEDS: Venlafaxine HCl ER 150 MG CAP.ER.24H PO (08:54)
[2022-09-24] MEDS: Venlafaxine HCL 25 MG TABLET 75 MG PO (08:54)
[2022-09-24] MEDS: Pregabalin 200 MG CAPSULE PO ×3 (08:54→20:20)
[2022-09-24] MEDS: 0.9 % Sodium Chloride Flush 3 ML SYRINGE IVFLUSH ×3 (08:55→20:21)
[2022-09-24] MEDS: methADONE HCl 20 MG/2 ML ORAL.CONC 180 MG PO (08:55)
[2022-09-24] MEDS: Acetaminophen 325 MG TABLET 650 MG PO ×2 (13:08→19:18)
[2022-09-24] MEDS: hydrOXYzine HCL 50 MG TABLET PO (13:09)
--- NOTE | 2022-09-24 14:13 | P.PNIM_ITS ---
Subjective Subjective Date of Service: 09/24/22 Interval History: somnolent this morning, did not sleep well last night unable to provide any recent, denies headache, no dizziness, no nausea, no vomiting , no abdominal pain, no diarrhea, no worsening right-sided chest discomfort, noted to cough and sounds congested, no events overnight, no fevers, no chills. Review of Systems Review of Systems: Yes all other systems are reviewed and are negative Physical Exam Vital Signs: Vital Signs: Last Vital Signs Temp 97.0 F 09/24/22 07:49 Pulse 69 09/24/22 11:35 Resp 18 09/24/22 11:35 BP 164/93 H 09/24/22 07:49 Pulse Ox 93 09/24/22 07:49 O2 Del Method Room Air 09/24/22 07:49 O2 Flow Rate 96 09/22/22 19:12 BMI result Body Mass Index 25.3 Const: Other: General awake aler t x3, in no acute distress.? Neck? s upple no JVD. CVS? regular rate rhyt hm, Respiratory michelle ngs bilateral rhon chi,no respiratory distress, no whee ze Gastrointestina l abdomen soft, no ntender, bowel jaimie nds audible, no gu arding , no rigidi ty. Tenderness rig ht lower chest wit h palpation Extrem ities no? edema. N euro nonfocal Skin no rash Psych zari ropriate affect Objective Data Active Medications Acetaminophen (Acetaminophen 325 Mg Tablet) 650 mg PO Q6H PRN PRN Reason: Pain, Mild (Pain Scale 1-3) Last Admin: 09/24/22 13:08 Dose: 650 mg Documented By: SHRUTHI Albuterol Sulfate (Albuterol Sulfate 90 Mcg 8 Gm Inhaler) 2 puff INHALE RQ4H PRN PRN Reason: Shortness of Breath Albuterol/Ipratropium (Albuterol/Iprat 2.5/0.5mg 3 Ml Ampul.Neb) 3 ml INHALE Q4H PRN PRN Reason: Wheezing Albuterol/Ipratropium (Albuterol/Iprat 2.5/0.5mg 3 Ml Ampul.Neb) 3 ml INHALE RQID RENETTA Last Admin: 09/24/22 11:33 Dose: 3 ml Documented By: CLAUDIA Amitriptyline HCl (Amitriptyline Hcl 25 Mg Tablet) 75 mg PO BEDTIME [facility] Last Admin: 09/23/22 20:07 Dose: 75 mg Documented By: CHRISTI Amoxicillin/Clavulanate Potassium (Amoxicillin/Potassium Clav 875 Mg Tablet) 875 mg PO Q12H [facility] Last Admin: 09/24/22 08:54 Dose: 875 mg Documented By: SHRUTHI Benzocaine (Throat Lozenge, Medicated Lozenge) 1 lozenge MUCOUS MEM Q2H PRN PRN Reason: Sore Throat Last Admin: 09/24/22 08:54 Dose: 1 lozenge Documented By: SHRUTHI Enoxaparin Sodium (Enoxaparin Sodium 40 Mg/0.4 Ml Syringe) 40 mg SUBCUT Q24H [facility] Last Admin: 09/24/22 08:55 Dose: Not Given Documented By: SHRUTHI Non-Admin Reason: Patient Refused Fluticasone/Vilanterol (Fluticasone/Vilanterol 100/25 Blst.W.Dev) 1 puff INHALE RDAILY [facility] Last Admin: 09/24/22 08:04 Dose: 1 puff Documented By: BRESNE Guaifenesin (Guaifenesin 100 Mg/5 Ml Liquid) 10 ml PO TID PRN PRN Reason: cough Last Admin: 09/24/22 08:54 Dose: 10 ml Documented By: SHRUTHI Hydroxyzine HCl (Hydroxyzine Hcl 50 Mg Tablet) 50 mg PO DAILY PRN PRN Reason: Anxiety Last Admin: 09/24/22 13:09 Dose: 50 mg Documented By: SHRUTHI Ketorolac Tromethamine (Ketorolac Tromethamine 30 Mg/Ml Vial) 30 mg IVPUSH Q6H PRN PRN Reason: Pain, Severe (Pain Scale 7-10) Last Admin: 09/24/22 13:09 Dose: 30 mg Documented By: SHRUTHI Melatonin (Melatonin 3 Mg Tablet) 6 mg PO BEDTIME PRN PRN Reason: Insomnia Methadone HCl (Methadone Hcl 20 Mg/2 Ml Oral.Conc) 180 mg PO DAILY [facility] Last Admin: 09/24/22 08:55 Dose: 180 mg Documented By: SHRUTHI Nicotine Polacrilex (Nicotine Polacrilex Lozenge 2 Mg Lozenge) 2 mg BUCCAL QID PRN PRN Reason: Nicotine Cravings Omeprazole (Omeprazole 40 Mg Capsule.) 40 mg PO DAILY@0630 [facility] Last Admin: 09/24/22 05:50 Dose: 40 mg Documented By: CHRISTI Ondansetron HCl (Ondansetron Hcl 4 Mg/2 Ml Vial) 4 mg IVPUSH Q8H PRN PRN Reason: Nausea and Vomiting Last Admin: 09/23/22 13:23 Dose: 4 mg Documented By: SHRUTHI Pharmacy Consult (Consult Rx Perform Med Rec) 1 each MISCELLANE ONCE PRN PRN Reason: Consult order Pregabalin (Pregabalin 200 Mg Capsule) 200 mg PO TID [facility] Last Admin: 09/24/22 08:54 Dose: 200 mg Documented By: SHRUTHI Sodium Chloride (0.9 % Sodium Chloride Flush 3 Ml Syringe) 3 ml IVFLUSH QSHIFT [facility] Last Admin: 09/24/22 08:55 Dose: 3 ml Documented By: SHRUTHI Trazodone HCl (Trazodone Hcl 100 Mg Tablet) 100 mg PO BEDTIME [facility] Last Admin: 09/23/22 20:07 Dose: 100 mg Documented By: CHRISTI Venlafaxine HCl (Venlafaxine Hcl Er 150 Mg Cap.Er.24h) 150 mg PO DAILY [facility] Last Admin: 09/24/22 08:54 Dose: 150 mg Documented By: SHRUTHI Venlafaxine HCl (Venlafaxine Hcl 25 Mg Tablet) 75 mg PO DAILY [facility] Last Admin: 09/24/22 08:54 Dose: 75 mg Documented By: SHRUTHI Labs 09/24/22 06:27 09/24/22 06:27 Labs: Laboratory Results - last 24 hr 09/24/22 09/24/22 06:27 06:27 MCV 80.2 MCH 24.7 L MCHC 30.8 L RDW 20.0 H Plt Count 431 H MPV 10.2 Absolute Nucleated RBC 0.000 Nucleated RBC % (auto) 0.0 Anion Gap 11 L Estim Creat Clear Calc 67.2 Estimated GFR > 60 Random Glucose 72 Calcium 9.1 Assessment and Plan (1) Bilateral pneumonia: Status: Acute (2) COPD (chronic obstructive pulmonary disease): Status: Acute (3) Acute respiratory failure with hypoxia: Status: Acute (4) Opioid use disorder: Status: Acute Plan 52-year-old female with pertinent history of substance use disorder, mood disorder, COPD not on home oxygen was brought by EMS evaluation of altered mentation. #.? Acute toxic encephalopathy in the setting of substance use disorder:? resolved, no confusion ? ? ? U tox positive for cocaine and fentanyl ,being followed by recovery team, outpatient rehab referrals provided to patient, patient is aware no placement over the weekend and also bed availability on Sunday not guaranteed. ? ? ? #.? Sepsis and acute hypoxemic respiratory failure due to right-sided pneumonia:? ? ? Concern for aspiration in the setting of above, Lactic acid? normal , blood culture?negative , oxygenation improved now on room air finger oximetry 95 Old record reviewed from [facility] patient was admitted to [facility] on August 14 and treated for right-sided pneumonia, subsequently readmitted to [facility] on September 08 after a fall and diagnosed to have right-sided 5th, 6, 7 and 8th rib fractures, likely due to intoxication and fall, no intervention was required s/p IV Unasyn started 09/21, transition to Augmentin by mouth on 09/23,e ncourage incentive spirometry Leukocytosis due to steroids will follow CBC #.? Acute exacerbation of COPD: continue scheduled and p.r.n. Jose, s/p IV steroids, now on prednisone 20 mg daily, on trelegy at home. Encouraged to quit smoking #.? Mood disorder:?cont. home mood stabilizers #.? Microcytic anemia:? iron studies not consistent with iron deficiency anemia, although some component of iron deficiency was placed on iron supplement #.? Elevated BNP:? No pedal or pulmonary edema. echo showed EF 60-65% no wall motion abnormality, abnormal diastolic function , elevated BNP likely due to pulmonary process. #? history of substance abuse on methadone # ? tobacco use disorder? continue nicotine gum as needed for cravings,councilling done. Patient declined nicotine patch. # right-sided chest pain due to recent rib fractures on toradol iv , since felt Motrin is not working, encourage incentive spirometry. # elevated blood pressures with no history of hypertension, likely due to withdrawal from illicit drugs, steroids anxiety hold off on antihypertensive follow BP DVT prophylaxis: Lovenox 40 mg daily Full code ?patient will need continued inpatient hospitalization for treatment of pneumonia and safe discharge. Possible discharge at a.m. Time Spent With Patient Time: Total time managing care of this patient today ____ minutes. Quality Stroke Does the patient have a stroke diagnosis?: No VTE Prior VTE?: No VTE Risk Level:: Medical - moderate - high VTE Device Contraindication: Treatment Not Indicated VTE Drug Contraindication: N/A - Med Ordered
[2022-09-24] MEDS: predniSONE 20 MG TABLET PO (15:04)
[2022-09-24] MEDS: Amitriptyline HCl 25 MG TABLET 75 MG PO (20:20)
[2022-09-24] MEDS: traZODone HCL 100 MG TABLET PO (20:21)
[2022-09-24] MEDS: polyethylene glycoL 3350 17 GM POWD.PACK PO (20:21)
[2022-09-24] MEDS: hydrALAZINE HCl 20 MG/ML VIAL 10 MG IVPUSH (20:21)
[2022-09-25 00:01] VITALS: BP 186/96; PULSE 67; RESP 16; TEMP 36; O2SAT 94
--- NOTE | 2022-09-25 00:05 | PC.NURSE ---
09/24/221924 BP-194/120 HR-65 notified ordered hydralazine 10mg iv x 1 dose given at 2019.Re-checked BP at 2099 175/100 HR-71.0000 BP-186/96 notified no new orderes at this time.
[2022-09-25] MEDS: Ketorolac Tromethamine 30 MG/ML VIAL IVPUSH ×4 (01:07→16:14)
[2022-09-25] MEDS: Acetaminophen 325 MG TABLET 650 MG PO ×3 (01:08→11:49)
[2022-09-25] MEDS: ondansetron HCL 4 MG/2 ML VIAL IVPUSH (01:15)
[2022-09-25 04:44] VITALS: BP 189/100; PULSE 62; O2SAT 94
[2022-09-25] MEDS: Omeprazole 40 MG CAPSULE.DR PO (05:04)
--- NOTE | 2022-09-25 05:56 | PC.NURSE ---
0446 BP-189/100 notified ordered 10mg iv hydralazine pt refused states it made her feel wierd last time I gave it to her. notified that pt refused med.pt was also c/0 03/06 right rib pain not due for toradol until 0700 per ok to give early.Pt medicated with toradol and tylenol at 0515.
[2022-09-25 07:48] VITALS: BP 152/80; PULSE 68; RESP 18; TEMP 36.1; O2SAT 95
[2022-09-25] MEDS: Pregabalin 200 MG CAPSULE PO ×2 (08:10→14:22)
[2022-09-25] MEDS: guaiFENesin 100 MG/5 ML LIQUID 10 ML PO ×2 (08:10→14:22)
[2022-09-25] MEDS: methADONE HCl 20 MG/2 ML ORAL.CONC 180 MG PO (08:10)
[2022-09-25] MEDS: Venlafaxine HCl ER 150 MG CAP.ER.24H PO (08:10)
[2022-09-25] MEDS: Venlafaxine HCL 25 MG TABLET 75 MG PO (08:10)
[2022-09-25] MEDS: predniSONE 20 MG TABLET PO (08:10)
[2022-09-25] MEDS: Amoxicillin/Potassium Clav 875 MG TABLET PO (08:10)
[2022-09-25] MEDS: Fluticasone/Vilanterol 100/25 BLST.W.DEV 1 PUFF INHALE (08:14)
[2022-09-25 08:15] VITALS: PULSE 64; RESP 18; O2SAT 98
[2022-09-25] MEDS: 0.9 % Sodium Chloride Flush 3 ML SYRINGE IVFLUSH ×2 (08:15→14:24)
[2022-09-25] MEDS: Lidocaine 4 % Patch ADH..PATCH 1 PATCH TRANSDERMA (11:39)
--- NOTE | 2022-09-25 12:05 | MHC.RECOVRN ---
Addendum entered by Elizabeth Wooten 09/25/22 12:43: Spoke with Greta at , pt on a contract, unable to return x 1 month. Original Note: Met with pt to follow up regarding [facility]. [facility] available beds, awaiting call back.
[2022-09-25] MEDS: hydrOXYzine HCL 50 MG TABLET PO (14:22)
--- NOTE | 2022-09-25 14:42 | MHC.CM.PN ---
Per Recovery nurse patient is not able to return to [facility] for 1 month. She has arranged to stay with a friend at discharge. She will arrange transport home.
[2022-09-25 15:45] VITALS: BP 181/98; PULSE 68; RESP 18; TEMP 36.6; O2SAT 93
--- NOTE | 2022-09-25 16:10 | PM.DS ---
DS: Providers Provider Date of Service: 09/25/22 Date of admission: 09/21/22 03:43 Date of discharge: 09/25/22 Primary care physician: More Lugo NP Consults: 09/21/22 03:43 Addiction Medicine Routine Consulting Provider: Ingrid Raza Reason for consultation: substance use disorder DS: Diagnosis Discharge Diagnosis (1) Bilateral pneumonia: Status: Acute (2) COPD (chronic obstructive pulmonary disease): Status: Acute (3) Acute respiratory failure with hypoxia: Status: Acute (4) Opioid use disorder: Status: Acute (5) COPD exacerbation: Status: Acute (6) Toxic encephalopathy: Status: Acute (7) Cocaine use disorder: Status: Acute DS: Summary Hospital Course Hospital Course: from admission H+P by Dr Albert Wang MD, 09/21/22: This is a 52-year-old female with pertinent history of substance use disorder, mood disorder, COPD not on home oxygen was brought by EMS evaluation of altered mentation.? Unable to obtain history from the patient as patient is very drowsy.? History obtained from ER provider and chart review.? Patient was found to be drowsy and hypoxemic upon ER arrival.? She admitted to snorting heroin and cocaine the EMS.? Patient was given naloxone in the ER.? Patient was satting 85% upon arrival.? Patient was complaining of cough the last few days with mucopurulent expectoration.? Patient with one-word responses at the time my evaluation and is going back to sleep.? Unable to have a conversation.? Unable to obtain review of systems. 52-year-old female with pertinent history of substance use disorder, mood disorder, COPD not on home oxygen was brought by EMS evaluation of altered mentation. Hospital course by problem: #.? Acute toxic encephalopathy in the setting of substance use disorder:? resolved, no confusion ? ? ? U tox positive for cocaine and fentanyl ,being followed by recovery team, outpatient rehab referrals provided to patient, patient is aware no placement over the weekend and also bed availability on Sunday not guaranteed. - Per Recovery Team, patient cannot go to [facility] for 1 month as she is on a hold there. She was discharged to go stay with her friend. ? #.? Sepsis and acute hypoxemic respiratory failure due to right-sided pneumonia:? Concern for aspiration in the setting of above, Lactic acid? normal , blood culture?negative , oxygenation improved now on room air finger oximetry 95 ?? ? Old record reviewed from [facility] patient was admitted to [facility] on August 14 and treated for right-sided pneumonia, subsequently readmitted to [facility] on September 08 after a fall and ?? ? diagnosed to have right-sided 5th, 6, 7 and 8th rib fractures, likely due to intoxication and fall, no intervention was required ?? ? s/p IV Unasyn started 09/21, transition to Augmentin by mouth on 09/23,encourage incentive spirometry ?? ? Leukocytosis due to steroids - She was discharged on 6 days of Augmentin. #.? Acute exacerbation of COPD: continue scheduled and p.rrigoberto Garcia, s/p IV steroids, now on prednisone 20 mg daily, on trelegy at home.? Encouraged to quit smoking - She was discharged on a 6-day prednisone taper and Breo as a controller inhaler. Time Spent with Patient Time attestation: Total time managing care of this patient today ___45_ minutes. Discharge coordination time: Greater than 30 minutes Quality: Safe Use of Opioids Does Pt have an Active Cancer Diagnosis on the Problem List?: No Quality: Stroke Does the patient have a stroke diagnosis?: No Physical Exam Vital Signs: Vital Signs: Last Vital Signs Temp 97.8 F 09/25/22 15:45 Pulse 68 09/25/22 15:45 Resp 18 09/25/22 15:45 BP 181/98 H 09/25/22 15:45 Pulse Ox 93 09/25/22 15:45 O2 Del Method Room Air 09/25/22 15:45 O2 Flow Rate 96 09/22/22 19:12 BMI result Body Mass Index 25.3 Gen: in no acute distress HEENT: sclera anicteric, moist mucus membranes Neck: supple Lungs: clear to auscultation bilaterally Heart: regular rate and rhythm, no murmurs Abd: soft, non-tender, non-distended Ext: no edema Skin: warm/well-perfused Neuro: alert and oriented x3, no focal findings Psych: appropriate affect DS: Data Data Completed and Pending Completed studies during hospitalization [Text1]: Laboratory Results WBC 18.9 X10*3/uL (4.8-10.8) H 09/24/22 06:27 RBC 4.05 X10*6/uL (4.20-5.50) L 09/24/22 06:27 Hgb 10.0 g/dl (12.0-16.0) L 09/24/22 06:27 Hct 32.5 % (37.0-47.0) L 09/24/22 06:27 MCV 80.2 fL (80.0-98.0) 09/24/22 06:27 MCH 24.7 pg (27.0-33.0) L 09/24/22 06: MCHC 30.8 g/dl (31.0-35.0) L 09/24/22 06:27 RDW 20.0 % (11.0-16.0) H 09/24/22 06:27 Plt Count 431 X10*3/uL (160-400) H 09/24/22 06:27 MPV 10.2 fL (9.4-12.3) 09/24/22 06:27 Immature Gran % (Auto) 0.9 % (0.0-0.4) H 09/21/22 06:40 Neut % (Auto) 93.9 % (45-73) H 09/21/22 06:40 Lymph % (Auto) 3.6 % (20-40) L 09/21/22 06:40 Iron % (Auto) 1.0 % (2-11) L 09/21/22 06:40 Eos % (Auto) 0.1 % (0-4) 09/21/22 06:40 Baso % (Auto) 0.5 % (0-2) 09/21/22 06:40 Lymph # (Auto) 0.8 X10*3/uL (1.2-4.9) L 09/21/22 06:40 Iron # (Auto) 0.2 X10*3/uL (0.1-1.2) 09/21/22 06:40 Eos # (Auto) 0.0 X10*3/uL (0.0-0.4) 09/21/22 06:40 Baso # (Auto) 0.1 X10*3/uL (0.0-0.2) 09/21/22 06:40 Abs Immat Gran (auto) 0.18 X10*3/uL (0.00-0.03) H 09/21/22 06:40 Absolute Neuts (auto) 19.7 x10*3/uL (2.0-8.3) H 09/21/22 06:40 Absolute Nucleated RBC 0.000 X10*3/uL (0.0-0.012) 09/24/22 06:27 Nucleated RBC % (auto) 0.0 /100WBC (0.0-0.2) 09/24/22 06:27 Smear Tech's Comments VERIFIED 09/21/22 01:46 VBG pH 7.48 (7.32-7.43) H 09/21/22 01:47 VBG pCO2 38 mmHg 09/21/22 01:47 VBG pO2 43 mmHg 09/21/22 01:47 VBG HCO3 29 mmol/L (22-26) H 09/21/22 01:47 VBG O2 Saturation 70.0 % 09/21/22 01:47 VBG Base Excess 5.8 mmol/L 09/21/22 01:47 Sodium 140 mmol/L (135-145) 09/24/22 06:27 Potassium 4.0 mmol/L (3.3-5.1) 09/24/22 06:27 Chloride 102 mmol/L (96-108) 09/24/22 06:27 Carbon Dioxide 31 mmol/L (22-29) H 09/24/22 06:27 Anion Gap 11 (12-20) L 09/24/22 06:27 BUN 23 mg/dL (9-16) H 09/24/22 06:27 Creatinine 0.91 mg/dL (0.5-1.4) 09/24/22 06:27 Estim Creat Clear Calc 67.2 09/24/22 06:27 Estimated GFR > 60 09/24/22 06:27 Random Glucose 72 mg/dL (60-115) 09/24/22 06:27 Lactic Acid 0.9 mmol/L (0.5-2.0) 09/21/22 02:54 Calcium 9.1 mg/dL (8.4-10.2) 09/24/22 06:27 Iron 28 mcg/dL (30-160) L 09/21/22 01:46 TIBC 269 mcg/dL (228-428) 09/21/22 01:46 % Saturation 10 % (15-50) L 09/21/22 01:46 Unsat Iron Binding 241 ug/dL 09/21/22 01:46 Total Bilirubin 0.8 mg/dL (0.0-1.0) 09/21/22 01:46 AST 23 U/L (5-31) 09/21/22 01:46 ALT 14 U/L (0-31) 09/21/22 01:46 Alkaline Phosphatase 91 U/L (39-117) 09/21/22 01:46 Troponin I High Sens 15.0 ng/L (<3.5-17.0) 09/21/22 02:54 B-Natriuretic Peptide 638 pg/mL (<100) H 09/21/22 01:46 Total Protein 6.7 g/dL (6.5-8.0) 09/21/22 01:46 Albumin 3.5 g/dL (3.5-5.0) 09/21/22 01:46 Urine Color Yellow 09/21/22 03:43 Urine Appearance Clear 09/21/22 03:43 Urine pH 7.5 (5.0-9.0) 09/21/22 03:43 Ur Specific [place] 1.010 (1.005-1.025) 09/21/22 03:43 Urine Protein Negative mg/dL (Neg-Trace) 09/21/22 03:43 Urine Glucose (UA) Negative mg/dL (Negative) 09/21/22 03:43 Urine Ketones Negative mg/dL (Negative) 09/21/22 03:43 Urine Blood Negative (Negative) 09/21/22 03:43 Urine Nitrite Negative (Negative) 09/21/22 03:43 Ur Leukocyte Esterase Negative (Negative) 09/21/22 03:43 Urine Opiates Screen Not Detected (Not Detect) 09/21/22 03:43 Urine Fentanyl Screen POSITIVE (Not Detect) H 09/21/22 03:43 Ur Barbiturates Screen Not Detected (Not Detect) 09/21/22 03:43 Ur Phencyclidine Scrn Not Detected (Not Detect) 09/21/22 03:43 Ur Amphetamines Screen Not Detected (Not Detect) 09/21/22 03:43 U Benzodiazepines Scrn Not Detected (Not Detect) 09/21/22 03:43 Urine Cocaine Screen POSITIVE (Not Detect) H 09/21/22 03:43 U Marijuana (THC) Screen Not Detected (Not Detect) 09/21/22 03:43 Ethyl Alcohol < 10 mg/dL 09/21/22 01:46 COVID-19 (OSKAR) Negative (Negative) 09/21/22 01:39 COVID-19 Clin Com See Note 09/21/22 01:39 Influenza Type A (HEIDI) Negative (Negative) 09/21/22 03:45 Influenza Type B (HEIDI) Negative (Negative) 09/21/22 03:45 Influenza A & B Note See Note 09/21/22 03:45 Impressions Chest X-Ray 09/21/22 01:22 IMPRESSION: No consolidation. Bronchial wall thickening can be seen with a small airways process such as asthma or atypical/viral infection. Chest CT 09/21/22 03:13 IMPRESSION: Airspace opacities in the lung apices as well as in the right lower lobe. This is concerning for pneumonia. Fleischner guidelines were followed. Labs on day of discharge: Preliminary micro results at discharge 09/21/22 02:54 Blood Culture - Preliminary Blood - Venous No growth after 48 hours. 09/21/22 02:54 Blood Culture - Preliminary Blood - Venous No growth after 48 hours. Discharge Plan Discharge Anticipated Discharge Date/Time: 09/25/22 16:07 Patient Disposition: Home, Self-Care Discharge Diagnosis: pneumonia, COPD exacerbation, opioid use disorder Referrals: More Lugo [employer] RECONDITIONER [Primary Care Provider] - 1 Week Discharge Medications: New lidocaine [Lidocaine Pain Relief] 4 % Adhesive Patch,Medicated 1 patch transdermal DAILY Qty: 30 0RF Protocol: Apply to: Apply to: right anterior chest wall amoxicillin-pot clavulanate 875-125 mg Tablet 875 mg PO Q12H Qty: 12 0RF fluticasone furoate-vilanterol [Breo Ellipta] 100-25 mcg/dose Blister With Device 1 puff inhalation RDAILY Qty: 30 0RF prednisone 10 mg tablet See Rx Instructions .ROUTE .COMPLEX Qty: 9 0RF Rx Instructions: 20 mg daily x 3 days then 10 mg daily x 3 days, then stop Continued venlafaxine 75 mg tablet 75 mg PO DAILY amitriptyline 75 mg tablet 75 mg PO BEDTIME venlafaxine 150 mg capsule,extended release 24hr 150 mg PO DAILY hydroxyzine pamoate 50 mg capsule 50 mg PO DAILY PRN (Reason: Anxiety) pantoprazole 40 mg tablet,delayed release (DR/EC) 40 mg PO DAILY@0630 ibuprofen 400 mg tablet 400 mg PO BID PRN (Reason: Pain) Rx Instructions: rib fracture nicotine 21 mg/24 hr patch 24 hour 1 patch topical DAILY PRN (Reason: Nicotine Cravings) methadone 10 mg/mL Concentrate 180 mg PO DAILY loratadine 10 mg tablet 10 mg PO DAILY pregabalin 200 mg capsule 200 mg PO TID nicotine (polacrilex) 2 mg mini lozenge 2 mg buccal QID PRN (Reason: Nicotine Cravings) trazodone 100 mg tablet 100 mg PO BEDTIME albuterol sulfate [Ventolin HFA] 90 mcg/actuation HFA aerosol inhaler 90 mcg inhalation Discharge Orders: Discharge Order (Routine); Ordered 09/25/22 Ordered By: Angelo Garibay Activity on Discharge: As tolerated Stand Alone Forms: Patient Portal Discharge page Care Plan Goals: recover from pneumonia, maintain sobriety Health Concerns: pneumonia, COPD exacerbation, opioid use disorder Plan of Treatment: amoxicilin-clavulanate 875-125 mg twice daily x 6 days prednisone 20 mg daily x 3 days, then 10 mg daily x 3 days start Breo inhaler daily recovery support continue methadone Please follow up with your primary care doctor within 1 week. Return to the hospital if you experience recurrent or worsening symptoms. Assessment: See Discharge Summary. Discharge Date/Time: 09/25/22 18:03
--- NOTE | 2022-09-25 16:10 | MHC.RECOVRN ---
Met with pt to follow up with information about [facility]. Pt has been in contact with the CSS program at [facility] and is hopeful for a bed. Pt aware that she can not continue to be held at [facility] while waiting for a CSS bed to open. Pt reports she has a friend she can stay with while she follows up with CSS facilities outpatient. Denies other questions or concerns. Recovery support intervention concluded. CM aware.
--- NOTE | 2022-09-25 18:13 | PC.NURSE ---
Pt brought down to decon for her belongings. Pt left prior to given Last dose methadone letter. Letter left at desk.
== END 2022-09-25 18:03 | disposition home or self-care (01) | DRG 720 ==
LOC: HO.ED 23:45 → HO.EDOVER 09-21 03:46 → HO.S3 09-21 15:09
PROVIDERS: Hospitalist; Admitting Provider Student in an Organized Health Care Education/Training Program; Emergency Provider Internal Medicine; PCP Nurse Practitioner Family; Visit Provider Family Medicine
DX: A41.9 Sepsis, unspecified organism (principal); J96.01 Acute respiratory failure with hypoxia; G92.8 Other toxic encephalopathy; J18.9 Pneumonia, unspecified organism; F11.20 Opioid dependence, uncomplicated; F17.210 Nicotine dependence, cigarettes, uncomplicated; J44.0 Chronic obstructive pulmonary disease with (acute) lower respiratory infection; D64.9 Anemia, unspecified; J44.1 Chronic obstructive pulmonary disease with (acute) exacerbation; R03.0 Elevated blood-pressure reading, without diagnosis of hypertension; F41.9 Anxiety disorder, unspecified; F32.A Depression, unspecified; Z20.822 Contact with and (suspected) exposure to COVID-19; Z71.6 Tobacco abuse counseling; Z79.51 Long term (current) use of inhaled steroids; Z79.899 Other long term (current) drug therapy
CPT/HCPCS: 36415; 71045; 71250; 80048; 80053; 80307; 81003; 82077; 82803; 83540; 83605; 83880; 84484; 85025; 85027; 87040; 87070; 87205; 87502; 87635; 93005; 93306; 99285; J0295; J0456; J0696; J1885; J2405; J2920; Q9957

== ENCOUNTER 2023-11-28 18:23 | Emergency (ER) | payer OTHER, SELFPAY ==
--- NOTE | ~2023-11-28 | XR_ITS ---
EXAMINATION: XR CHEST CLINICAL INFORMATION: Cough and shortness of breath COMPARISON: Chest CT and chest x-ray September 21, 2022 TECHNIQUE: 2 views of the chest were obtained. FINDINGS: Cardiac silhouette demonstrates similar prominence. The lungs are adequately aerated. Asymmetric elevation of right hemidiaphragm again noted. Subtle linear opacity in the right lung base is most suggestive of atelectasis. No pleural effusion. No pneumothorax. XR/XR chest 2V IMPRESSION: Suspected right basilar atelectasis.
[2023-11-28 18:46] VITALS: BP 138/73; BP 144/86; PULSE 58; PULSE 64; RESP 18; TEMP 36.2; O2SAT 95; O2SAT 98; BMI 22.5
--- NOTE | 2023-11-28 19:17 | MHC.EDTECH ---
Patient was business change manager into green gown ,patient belonging are locked up in decon .
--- NOTE | 2023-11-28 19:33 | PC.NURSE ---
spoke with Terese from [facility]. pt is not allowed back to that program d/t drug use. advised detox facility. they will send her belongings to wherever she ends up or will send here tomorrow. pt very unhappy, wants to leave
[2023-11-28] MEDS: LORazepam 0.5 MG TABLET PO (20:03)
[2023-11-28 20:54] LABS: Amphetamine Screen Urine Not Detected (Not Detect); Barbiturates, Urine Not Detected (Not Detect); Benzodiazepines Screen Urine Not Detected (Not Detect); Buprenorphine Scr Not Detected (Not Detect); Cannabinoid Screen Urine Not Detected (Not Detect); Cocaine Screen Urine POSITIVE (Not Detect); Fentanyl, urine POSITIVE (Not Detect); Methadone Screen, Urine Positive (Not Detect); Opiate Screen Urine POSITIVE (Not Detect); Oxycodone Screen Urine Not Detected (Not Detect); Phencyclidine Screen Urine Not Detected (Not Detect)
[2023-11-28 20:56] LABS: MANUAL DIFF FLAG NO
--- NOTE | 2023-11-28 21:01 | PC.NURSE ---
pt wanting to leave got agitated, aware medicated per MAR. pt calm and cooperative at this time. labs and UA collected. sitter in place at bedside.
[2023-11-28 21:02] LABS: Basophils Percent Auto 0.1 % (0-2); Eosinophils Percent Auto 0.1 % (0-4); Hematocrit 33.6 % (37.0-47.0); Hemoglobin 10.3 g/dl (12.0-16.0); Imm Gran Abs Auto 0.11 X10*3/uL (0.00-0.03); Imm Gran Pct Auto 0.6 % (0.0-0.4); Lymphocytes Absolute Auto 2.5 X10*3/uL (1.2-4.9); Lymphocytes Percent Auto 14.1 % (20-40); Mean Corpuscular HGB Conc 30.7 g/dl (31.0-35.0); Mean Corpuscular Hemoglobin 23.3 pg (27.0-33.0); Mean Platelet Volume 9.2 fL (9.4-12.3); Monocytes Absolute Auto 1.2 X10*3/uL (0.1-1.2); Neutrophils Absolute Auto 13.6 x10*3/uL (2.0-8.3); Neutrophils Percent Auto 78.1 % (45-73); Platelet Count 497 X10*3/uL (160-400); Red Blood Count 4.42 X10*6/uL (4.20-5.50); Red Cell Distribution Width 22.5 % (11.0-16.0); White Blood Count 17.4 X10*3/uL (4.8-10.8)
[2023-11-28 21:28] LABS: Anion Gap 11 (12-20); Blood Urea Nitrogen 16 mg/dL (9-16); Calcium 9.7 mg/dL (8.4-10.2); Carbon Dioxide 24 mmol/L (22-29); Chloride 105 mmol/L (96-108); Creatinine Clr Calc Pharmacy 61.5; Estimated Glomerular Filt Rate > 60; Ethanol < 10 mg/dL; Glucose Fasting 95 mg/dL (60-99); Potassium 4.2 mmol/L (3.3-5.1); Sodium 136 mmol/L (135-145)
[2023-11-28 22:14] VITALS: BP 154/90; PULSE 58; RESP 15; TEMP 36.3; O2SAT 99
--- NOTE | 2023-11-28 23:09 | ED_ITS ---
HPI - Medical Clearance General Chief complaint: Medical Clearance Stated complaint: crisis, suspected opiate use Time Seen by Provider: 11/28/23 19:40 Source: patient and RN notes reviewed History of Present Illness ED Provider: Kathie VARELA Narrative: 53-year-old female with past medical history of COPD, polysubstance use disorder presenting for substance use. Patient is currently staying at [facility] and staff called EMS today due to concerns of patient currently using drugs. Patient was mostly uncooperative when I spoke with her however she denies drug use and has no physical complaints. She states that she wants to smoke cigarettes currently. She denies SI/HI Related Information Home Medications ?Medication ?Instructions ?Recorded ?Confirmed albuterol sulfate 90 mcg/actuation 90 mcg inhalation 09/21/22 aerosol inhaler (Ventolin HFA) amitriptyline 75 mg tablet 75 mg PO BEDTIME 09/21/22 09/21/22 hydroxyzine pamoate 50 mg capsule 50 mg PO DAILY PRN Anxiety 09/21/22 09/21/22 ibuprofen 400 mg tablet 400 mg PO BID PRN Pain 09/21/22 09/21/22 loratadine 10 mg tablet 10 mg PO DAILY 09/21/22 09/21/22 methadone 10 mg/mL oral concentrate 180 mg PO DAILY 09/21/22 09/21/22 nicotine (polacrilex) 2 mg buccal 2 mg buccal QID PRN Nicotine 09/21/22 09/21/22 mini lozenge Cravings nicotine 21 mg/24 hr daily 1 patch topical DAILY PRN Nicotine 09/21/22 09/21/22 transdermal patch Cravings pantoprazole 40 mg tablet,delayed 40 mg PO DAILY@0630 09/21/22 09/21/22 release pregabalin 200 mg capsule 200 mg PO TID 09/21/22 09/21/22 trazodone 100 mg tablet 100 mg PO BEDTIME 09/21/22 09/21/22 venlafaxine 150 mg 150 mg PO DAILY 09/21/22 09/21/22 capsule,extended release 24 hr venlafaxine 75 mg tablet 75 mg PO DAILY 09/21/22 09/21/22 Previous Rx's ?Medication ?Instructions ?Recorded amoxicillin 875 mg-potassium 875 mg PO Q12H #12 tabs 09/25/22 clavulanate 125 mg tablet fluticasone furoate 100 1 puff inhalation RDAILY #30 ea 09/25/22 mcg-vilanterol 25 mcg/dose inhalation powder (Breo Ellipta) lidocaine 4 % topical patch 1 patch transdermal DAILY #30 ea 09/25/22 (Lidocaine Pain Relief) prednisone 10 mg tablet See Rx Instructions .Route 09/25/22 .COMPLEX #9 tabs Allergies Allergy/AdvReac Type Severity Reaction Status Date / Time No Known Allergies Allergy Verified 11/28/23 18:56 Review of Systems 2 Review of Systems: Patient denies head pain, neck pain, chest pain, shortness of breath, abdominal pain, nausea, vomiting, diarrhea, urinary symptoms, fevers, chills [facility] Past Medical History Attestation statement: The following information was validated with the patient. [facility] Narrative: Substance abuse, COPD Source: old records reviewed Medical History Anxiety Depression Emphysema lung Hiatal hernia Social History Social History Household Members: None Housing: Homeless Do you presently have visiting nurse or other home services: No Alcohol intake: never Patient Tobacco Use Status: Current someday Tobacco user Tobacco use type: Cigarette Smoked in Last 30 Days: Yes e-Cigarette/Vaping Use: Currently Using Use of substances other than those prescribed or required for medical reasons: Yes Substance Use Type: Crack/Cocaine and Heroin Advance Directives: No Advance Directives Information Provided: No service: No Physical Exam 2 Vital Signs: Vital Signs: Last Vital Signs Temp 97.4 F 11/28/23 22:14 Pulse 58 11/28/23 22:14 Resp 15 11/28/23 22:14 BP 154/90 H 11/28/23 22:14 Pulse Ox 99 11/28/23 22:14 O2 Del Method Nasal Cannula 11/28/23 22:14 O2 Flow Rate 2 11/28/23 22:14 BMI result Body Mass Index 22.5 Course Course Course Narrative: Lab work ordered Medications Administered Discontinued Medications Generic Name Dose Route Start Last Admin Trade Name Freq PRN Reason Stop Dose Admin Lorazepam 0.5 mg 11/28/23 19:51 11/28/23 20:03 Lorazepam 0.5 Mg Tablet PO 11/28/23 19:52 0.5 mg ONCE ONE Administration Medical Decision Making Medical Decision Making MDM Narrative: Patient was sent here from [facility] for evaluation. Our nurse called [facility] who stated that they will not take patient back because they are concerned that she is currently using drugs and they would like for her to be evaluated here I was called over to evaluate the patient because she was seated on the floor in a bathroom refusing to get up. When I spoke with her she was visibly agitated stating that she had not want to be in hospital. She was verbally redirectable and agreed to stay for care team evaluation. I offered her p.o. Ativan which she accepted Patient evaluated by care team who will get in touch with addiction medicine to have her evaluated in the morning for placement at another detox center Differential Diagnosis Intoxication, psychiatric illness, detox Lab Data 11/28/23 20:53 11/28/23 20:53 Labs: Lab Results 11/28/23 11/28/23 Range/Units 20:30 20:53 WBC 17.4 H (4.8-10.8) X10*3/uL RBC 4.42 (4.20-5.50) X10*6/uL Hgb 10.3 L (12.0-16.0) g/dl Hct 33.6 L (37.0-47.0) % MCV 76.0 L (80.0-98.0) fL MCH 23.3 L (27.0-33.0) pg MCHC 30.7 L (31.0-35.0) g/dl RDW 22.5 H (11.0-16.0) % Plt Count 497 H (160-400) X10*3/uL MPV 9.2 L (9.4-12.3) fL Immature Gran % (Auto) 0.6 H (0.0-0.4) % Neut % (Auto) 78.1 H (45-73) % Lymph % (Auto) 14.1 L (20-40) % [place] % (Auto) 7.0 (2-11) % Eos % (Auto) 0.1 (0-4) % Baso % (Auto) 0.1 (0-2) % Lymph # (Auto) 2.5 (1.2-4.9) X10*3/uL [place] # (Auto) 1.2 (0.1-1.2) X10*3/uL Eos # (Auto) 0.0 (0.0-0.4) X10*3/uL Baso # (Auto) 0.0 (0.0-0.2) X10*3/uL Abs Immat Gran (auto) 0.11 H (0.00-0.03) X10*3/uL Absolute Neuts (auto) 13.6 H (2.0-8.3) x10*3/uL Absolute Nucleated RBC 0.000 (0.0-0.012) X10*3/uL Nucleated RBC % (auto) 0.0 (0.0-0.2) /100WBC Sodium 136 (135-145) mmol/L Potassium 4.2 (3.3-5.1) mmol/L Chloride 105 (96-108) mmol/L Carbon Dioxide 24 (22-29) mmol/L Anion Gap 11 L (12-20) BUN 16 (9-16) mg/dL Creatinine 0.94 (0.5-1.4) mg/dL Estim Creat Clear Calc 61.5 Estimated GFR > 60 Fasting Glucose 95 (60-99) mg/dL Calcium 9.7 D (8.4-10.2) mg/dL Urine Opiates Screen POSITIVE H (Not Detect) Ur Buprenorphine Scrn Not Detected (Not Detect) ng/mL Ur Oxycodone Screen Not Detected (Not Detect) ng/mL Urine Methadone Screen Positive H (Not Detect) ng/mL Urine Fentanyl Screen POSITIVE H (Not Detect) Ur Barbiturates Screen Not Detected (Not Detect) Ur Phencyclidine Scrn Not Detected (Not Detect) Ur Amphetamines Screen Not Detected (Not Detect) U Benzodiazepines Scrn Not Detected (Not Detect) Urine Cocaine Screen POSITIVE H (Not Detect) U Marijuana (THC) Screen Not Detected (Not Detect) Ethyl Alcohol < 10 mg/dL Discharge Plan Discharge Clinical Impression: Behavior control problems associated with use of recreational drug Prescriptions: No Action venlafaxine 75 mg tablet 75 mg PO DAILY amitriptyline 75 mg tablet 75 mg PO BEDTIME venlafaxine 150 mg capsule,extended release 24hr 150 mg PO DAILY hydroxyzine pamoate 50 mg capsule 50 mg PO DAILY PRN (Reason: Anxiety) pantoprazole 40 mg tablet,delayed release (DR/EC) 40 mg PO DAILY@0630 ibuprofen 400 mg tablet 400 mg PO BID PRN (Reason: Pain) Rx Instructions: rib fracture nicotine 21 mg/24 hr patch 24 hour 1 patch topical DAILY PRN (Reason: Nicotine Cravings) methadone 10 mg/mL Concentrate 180 mg PO DAILY loratadine 10 mg tablet 10 mg PO DAILY pregabalin 200 mg capsule 200 mg PO TID nicotine (polacrilex) 2 mg mini lozenge 2 mg buccal QID PRN (Reason: Nicotine Cravings) trazodone 100 mg tablet 100 mg PO BEDTIME albuterol sulfate [Ventolin HFA] 90 mcg/actuation HFA aerosol inhaler 90 mcg inhalation lidocaine [Lidocaine Pain Relief] 4 % Adhesive Patch,Medicated 1 patch transdermal DAILY Qty: 30 0RF Protocol: Apply to: Apply to: right anterior chest wall amoxicillin-pot clavulanate 875-125 mg Tablet 875 mg PO Q12H Qty: 12 0RF fluticasone furoate-vilanterol [Breo Ellipta] 100-25 mcg/dose Blister With Device 1 puff inhalation RDAILY Qty: 30 0RF prednisone 10 mg tablet See Rx Instructions .ROUTE .COMPLEX Qty: 9 0RF Rx Instructions: 20 mg daily x 3 days then 10 mg daily x 3 days, then stop Print Language: Romanian
[2023-11-29 06:06] VITALS: BP 109/69; PULSE 67; RESP 15; TEMP 36.8; O2SAT 97
--- NOTE | 2023-11-29 09:17 | HE.PHANOTE ---
RE METHADONE VERIFICATION LAST DOSE 150 MG GIVEN 11/28/23 @JOSEPHINE
[2023-11-29] MEDS: methADONE HCl 20 MG/2 ML ORAL.CONC 150 MG PO (09:34)
[2023-11-29 10:30] VITALS: BP 110/67; PULSE 63; RESP 14; TEMP 36.7; O2SAT 98
--- NOTE | 2023-11-29 11:04 | MHC.EDTECH ---
hourly rounds and vitals completed, patient resting comfortable and warm blanket given.
--- NOTE | 2023-11-29 11:22 | MHC.CARE ---
Met with Pt to discuss discharge options. Pt declined a detox admission and stated she wants more permanent housing. Pt completed an [facility] yesterday and is waiting to hear if there is a bed. Pt will be referred to case management for penitentiary and other discharge options.
--- NOTE | 2023-11-29 11:42 | PHA.MEDREC ---
Addendum entered by Izabella Sofia [facility] 11/29/23 11:47: pt also stated she takes omeprazole 40 mg once a daily, but claims refelect 20 mg BID, left it on as pt states she takes it. Said that when she's in the hospital she gets pantoprazole but takes omerazole at home. Original Note: Pharmacy Consult ? Medication Reconciliation Pharmacy has completed the medication reconciliation, spoke to patient, pt was very sporadic about her medications and kept asking for something for anxiety. Pt stated she was getting pregabalin 300mg BID at [facility] about a week ago, although her pharmacy claims hx supports 200mg BID. Pt was also unsure of venlafaxine dosing for her 75mg dose, last claim for venlafaxine was for 75 mg ER, so it was left that way on med rec. Pt also stated she is on both advair and breo inhalers although she only has claims for Advair so that is refelcted on med rec, she couldn't remember if she uses spiriva so it was left off as claim hx also doesn't support consistent use.
[2023-11-29] MEDS: Venlafaxine HCl ER 75 MG CAP.ER.24H PO (12:56)
[2023-11-29] MEDS: LORazepam 1 MG TABLET PO (12:56)
[2023-11-29] MEDS: Pregabalin 100 MG CAPSULE 200 MG PO ×2 (13:31→20:47)
--- NOTE | 2023-11-29 14:44 | MHC.CM.ED ---
Addendum entered by Amna Cortez 11/29/23 15:35: Call placed to [facility] for [facility] placement in [place]: occupational health coordinator Elsie will fax an intake packet to ED for completion / consideration. Discussed with pt: pt states she has certain criteria for shelters/placement and isn't sure she wants to d/c to a snf. I'd rather wait here for a callback on the hotel Reminded pt that her options are limited and she would be able to have her O2 and assistance w/permanent housing. Waiting for application packet to be faxed Original Note: Received consult for assessment of d/c needs: Pt presently boarding in the ED following expulsion from [facility] recovery home d/t + substance use. Pt is on chronic O2 at 1 liter for COPD supplied by [employer] and [facility]. Pt A&Ox4, ambulating in ED and using her personal cell phone. O2 not on at this encounter. Pt states she was sent to the ED from recovery home with all her belongings and told she was unable to return for violation of sober conditions. This was verified by the Care team. Pt states prior to transfer to the [facility] recovery home she was living with her friend who she was providing [employer] care for. She met him in a snf where they were both residing. Pt states when this friend passed, she was evicted from the apartment as she was not on the lease. She also claims she filed an emergency court hearing d/t this eviction but isn't certain when the hearing will be. Pt has been residing in the recovery home until yesterday. Pt does not have any STR needs as she is independent with ADL's, ambulates without devices or impairment and although is on prn O2, does not require skilled respiratory care. Discussed w/ED provider and requested PT order d/c. Additional barriers to placement would be her + tox screen, payor restrictions and need for methadone. 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 She is awaiting a callback and has completed the application process. Pt initially declined detox placement by Care team but is now willing to reconsider as it may assist with after care housing. Care team contacted and meeting with pt at present. There are no female detox beds in the [facility]. ED provider and CM met with pt to discuss d/c plan. Pt states she is hoping she can be placed at a intermediate hotel tomorrow and will await a callback via her cellphone. ED CM to follow
[2023-11-29 15:00] VITALS: BP 131/93; PULSE 60; RESP 16; TEMP 36.6; O2SAT 97
--- NOTE | 2023-11-29 15:00 | PC.NURSE ---
Patient had clothes brought to her by a friend, security made aware of belongings and the belongings were brought to decon with the rest of her belongings.
[2023-11-29 15:36] VITALS: BP 155/100; PULSE 63; RESP 16; TEMP 36.6; O2SAT 95
--- NOTE | 2023-11-29 15:39 | MHC.EDTECH ---
hourly round and vitals completed, patient moved to room 15 for her comfort and she is very happy
--- NOTE | 2023-11-29 15:39 | MHC.EDTECH ---
THIS PCT ASSUMED CARE OF PATIENT AT 1500 ,VITALS TAKEN ,PATIENT HAVING ICE CREAM AND JUICE FOR SNACK .
--- NOTE | 2023-11-29 20:27 | PC.NURSE ---
Assumed care of pt at 1900, pt in stretcher eating meal. T/w introduced herself, pt requesting phone number out of bag which is locked upo in . This RN called and spoke with security but d/t belonging not being visible in bag staff is not able to get belongings per policy. This was explained to pt and she was upset asking for her belongings to be brought to her and explained that we are not allowed to give belongings until she is discharged. Pt ambulating in hallway requesting phone and she needs to call her tow motor driver who brings her to the methadone clinic and to speak with trust evaluation supervisor. Clinical coordinator aware and going to talk with pt. Pt not on oxygen at any time throughout this RN taking over care, no respiratory distress, no c/o SOB. Ambulation trial will be conducted with pt.
--- NOTE | 2023-11-29 20:39 | MHC.EDTECH ---
PER BRAND DIRECTOR ALAYNA ,AMBULATION TRIAL DONE ,PATIENT 02SAT WAS 99 %ON ROOM AIR AT REST ,DURING WALKING PATIENT 02 SAT DROP AT 89 % ,DANA ARMANDO AND BRAND DIRECTOR AWARE .
[2023-11-29] MEDS: Amitriptyline HCl 25 MG TABLET 75 MG PO (20:48)
--- NOTE | 2023-11-29 21:04 | PC.NURSE ---
Pt has her cellphone at bedside with immigration services officer. All of pt belongings are in decon. Pt wants a number out of a pink book however pt states her cell phone doesnt work due to she dropped it per pt. This rn tried to call her number and it goes to voicemail. At this time her phone had been joined with all her other belongings that are locked in decon.
--- NOTE | 2023-11-30 03:22 | MHC.EDTECH ---
This Tech took over care as PCT at 0320 Patient arrived to ED overflow by wheelchair Patient walk Independent to bed Patient is resting at this time plan of care ongoing
[2023-11-30 05:46] VITALS: BP 141/80; PULSE 67; RESP 17; TEMP 36.5; O2SAT 94
[2023-11-30] MEDS: Omeprazole 40 MG CAPSULE.DR PO (06:22)
[2023-11-30 08:49] VITALS: BP 138/90; PULSE 95; RESP 16; TEMP 36.8; O2SAT 95
[2023-11-30] MEDS: Venlafaxine HCl ER 75 MG CAP.ER.24H PO (08:50)
[2023-11-30] MEDS: Pregabalin 100 MG CAPSULE 200 MG PO ×2 (08:50→19:19)
[2023-11-30] MEDS: amLODIPine Besylate 5 MG TABLET PO (08:50)
[2023-11-30] MEDS: methADONE HCl 20 MG/2 ML ORAL.CONC 150 MG PO (08:51)
--- NOTE | 2023-11-30 09:07 | MHC.EDTECH ---
pt ate 100% breakfast
--- NOTE | 2023-11-30 12:14 | MHC.EDTECH ---
pt ate 100%lunch
--- NOTE | 2023-11-30 12:53 | MHC.CM.ED ---
Patient remains in ER overflow. [employer] [facility] started and faxed. Continue to monitor for d/c needs.
--- NOTE | 2023-11-30 12:57 | MHC.EDTECH ---
pt was given personal hygiene and she sated she will do it (self)
[2023-11-30 14:00] VITALS: BP 143/89; PULSE 60; RESP 18; TEMP 37.2; O2SAT 94
[2023-11-30] MEDS: hydrOXYzine HCL 50 MG TABLET PO (17:17)
[2023-11-30] MEDS: Amitriptyline HCl 25 MG TABLET 75 MG PO (19:14)
[2023-11-30] MEDS: LORazepam 1 MG TABLET PO (19:15)
[2023-11-30 20:08] VITALS: BP 121/79; PULSE 90; RESP 16; TEMP 36.4; O2SAT 95
[2023-12-01] MEDS: Omeprazole 40 MG CAPSULE.DR PO (06:23)
[2023-12-01 06:24] VITALS: BP 147/84; PULSE 87; RESP 19; TEMP 37.2; O2SAT 90
[2023-12-01] MEDS: methADONE HCl 20 MG/2 ML ORAL.CONC 150 MG PO (08:51)
[2023-12-01 08:54] VITALS: BP 162/93
[2023-12-01] MEDS: amLODIPine Besylate 5 MG TABLET PO (08:54)
[2023-12-01] MEDS: Venlafaxine HCl ER 75 MG CAP.ER.24H PO (10:25)
[2023-12-01] MEDS: Pregabalin 200 MG CAPSULE PO ×2 (10:37→20:07)
--- NOTE | 2023-12-01 14:46 | MHC.EDTECH ---
pct went to obtain vitals, pt refused
[2023-12-01] MEDS: hydrOXYzine HCL 50 MG TABLET PO (17:32)
[2023-12-01 17:49] VITALS: BP 134/85; PULSE 89; RESP 18; TEMP 36.4; O2SAT 97
[2023-12-01] MEDS: Melatonin 3 MG TABLET 6 MG PO (20:07)
[2023-12-01] MEDS: Amitriptyline HCl 25 MG TABLET 75 MG PO (20:07)
--- NOTE | 2023-12-01 20:38 | PC.NURSE ---
care of pt assumed at 0645 today. pt ambulating with unsteady gait and falls precautions in place with camera added as pt got oob several times without calling for assist. Pt helped herself to a breakfast tray that was not hers but dropped it on the floor. Boundries were set around behavior on the unit and what areas are off limits and why. pt struggling to accept but did after a few reminders. Pt alert and oriented x4, intermittently unsteady gait. Pt noted to be sleeping standing up 4 times. Lungs CTA, She reported generalized pain that she stated was better after methadone. Abdomen soft, nontender, +BS x4. NAVARRO. Meds as per jul. Safety maintained.
[2023-12-02] MEDS: Omeprazole 40 MG CAPSULE.DR PO ×2 (05:40→05:42)
[2023-12-02 06:00] VITALS: BP 114/73; PULSE 61; RESP 18; TEMP 36.6; O2SAT 95
[2023-12-02] MEDS: Fluticasone/Vilanterol 100/25 BLST.W.DEV 1 PUFF INHALE (08:59)
[2023-12-02 09:01] VITALS: PULSE 72; RESP 16; O2SAT 97
[2023-12-02] MEDS: Venlafaxine HCl ER 75 MG CAP.ER.24H PO (09:41)
[2023-12-02] MEDS: amLODIPine Besylate 5 MG TABLET PO (09:41)
[2023-12-02] MEDS: predniSONE 10 MG TABLET 20 MG PO (09:41)
[2023-12-02] MEDS: methADONE HCl 20 MG/2 ML ORAL.CONC 150 MG PO (09:41)
[2023-12-02] MEDS: Pregabalin 200 MG CAPSULE PO ×2 (09:41→20:28)
--- NOTE | 2023-12-02 13:13 | MHC.CM.PN ---
CM MET WITH PT AT HER REQUEST SHE STATES SHE DOES NOT KNOW WHAT IS HAPPENING OF IF ANYONE IS EVEN LOOKING FOR A PLACE FOR HER CM EXPLAINED THAT PER NOTES, THE CM HAS BEEN REFERRING TO APPROPRIATE SHELTERS THAT SHE COULD GO TO DESPITE HER OXYGEN NEEDS AND DEFENCE FORCE MEMBER OTHER RANKS RESPITE. PT STATES SHE DOES NOT KNOW WHY SHE CANNOT GO TO [facility] CM EXPLAINED A REFERRAL HAD LIKELY BEEN MADE THERE, BUT THERE ARE MANY UNHOUSED INDIVIDUALS IN THE AREA AND THERE IS TYPICALLY A WAIT LIST. PT SAYS SHE CANNOT WAIT ANY LONGER, SHE HAS A COURT DATE IN THE MORNING AND IT CANNOT BE DELAYED. SHE STATES SHE WILL NEED TO LEAVE HERE BY 0700 HOURS TO GET THERE BY BUS. SHE SAYS SHE WILL TRY TO RETURN TO THE [facility] HOUSE SHE WAS AT ONCE COURT IS OVER, ESPECIALLY SINCE HER OXYGEN EQUIPMENT IS THERE, SHE SAYS IF THEY DO NOT LET HER IN, SHE MAY BE ABLE TO STAY WITH A FRIEND FOR A COUPLE OF DAYS LONG SHE IS STILL ON THE WAIT LIST AT [facility]. PT WILL LEAVE TOMORROW MORNING VIA BUS TO HER COURT APPEARANCE
[2023-12-02 14:00] VITALS: BP 123/83; PULSE 73; RESP 16; TEMP 36.6; O2SAT 95
[2023-12-02] MEDS: hydrOXYzine HCL 50 MG TABLET PO (15:44)
--- NOTE | 2023-12-02 18:41 | PC.NURSE ---
Patient ambulates around unit, camera in place to make sure patient does not leave the unit. Patient constantly requests drinks and snacks, multiple requests for coffee. Compliant with medication. Patient stated that she needs to be in court tomorrow morning, CM aware. Patient requested to have tomorrow's methadone dose early and is also asking for assistance with transport. Per CM note patient will take the bus to her court tomorrow. Patient will also need a note with last methadone dose before she leaves tomorrow.
[2023-12-02] MEDS: Amitriptyline HCl 25 MG TABLET 75 MG PO (20:28)
[2023-12-02] MEDS: Melatonin 3 MG TABLET 6 MG PO (20:28)
[2023-12-02 21:13] VITALS: BP 135/82; PULSE 75; RESP 23; TEMP 36.7; O2SAT 96
[2023-12-03] MEDS: Omeprazole 40 MG CAPSULE.DR PO (05:31)
[2023-12-03 05:38] VITALS: BP 125/91; PULSE 75; RESP 20; TEMP 36.4; O2SAT 94
--- NOTE | 2023-12-03 06:23 | PC.NURSE ---
Patient is alert and oriented x3, VSS. Patient denies any pain. Patient ambulates independently with a steady gait. Per CM, plan for patient to be discharged on 12/03/2023 between 07:30-8:[address] Dr. Llanos, OK for patient to received methadone dose early at the time of discharge. Patient's friend to provide to patient transportation to her court hearing.
[2023-12-03] MEDS: methADONE HCl 20 MG/2 ML ORAL.CONC 150 MG PO (08:23)
[2023-12-03 08:55] VITALS: BP 125/91; PULSE 75; RESP 20; TEMP 36.4; O2SAT 94
--- NOTE | 2023-12-03 08:58 | PC.NURSE ---
Patient refused morning medication, only took Methadone, did not want to have the BP rechecked stated she was to anxious before her court appt. Patient ambulated back to ED to get her belonging out of [facility].
== END 2023-12-03 08:57 | disposition home or self-care (01) ==
PROVIDERS: Emergency Provider Student in an Organized Health Care Education/Training Program; PCP Nurse Practitioner Family
DX: F91.9 Conduct disorder, unspecified (principal); F19.90 Other psychoactive substance use, unspecified, uncomplicated; R05.9 Cough, unspecified; R45.1 Restlessness and agitation; R06.02 Shortness of breath; J44.9 Chronic obstructive pulmonary disease, unspecified; Z02.89 Encounter for other administrative examinations; Z79.899 Other long term (current) drug therapy; Z72.0 Tobacco use; Z59.00 Homelessness unspecified; Z99.81 Dependence on supplemental oxygen
CPT/HCPCS: 36415; 71046; 80048; 80307; 85025; 94640; 99285; S9485

== ENCOUNTER 2024-02-21 18:42 | Emergency (ER) | payer OTHER, SELFPAY ==
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
--- NOTE | ~2024-02-21 | CT_ITS ---
CT HEAD AND CERVICAL SPINE WITHOUT CONTRAST HISTORY: Trauma TECHNIQUE: Contiguous axial imaging was performed from the skull base to vertex without intravenous contrast. Sagittal and coronal reformatted images were obtained. CT images of the cervical spine were acquired without intravenous contrast. This CT examination was performed using dose optimization techniques as appropriate, variously including the following: *Automated exposure control *Adjustment of mA and/or kV according to patient size (this includes techniques or standardized protocols for targeted exams where dose is matched to indication/reason for exam; i.e. extremities or head) *Use of iterative reconstruction technique DLP: 976 mGy-cm COMPARISON: None available. FINDINGS: CT HEAD: The ventricles and sulci are normal in size and configuration without significant volume loss or hydrocephalus. 3 mm hyperdensity within the anterosuperior third ventricle may reflect a small proteinaceous versus calcified colloid cyst (image 84, series 10). There is no abnormal attenuation within the brain parenchyma. No territorial loss of haro-white differentiation. No acute intracranial hemorrhage or extra-axial fluid collection. No mass lesion, significant mass effect, or herniation pattern. The orbits are grossly normal. Paranasal sinuses and mastoid air cells are well aerated. Osseous structures are intact. Several nodules in the scalp, presumably sebaceous versus trichilemmal cysts. CT CERVICAL SPINE: No prevertebral soft tissue swelling. The craniocervical junction is intact. Vertebral body heights are normal without acute compression fracture or traumatic posterior element subluxation. Partially imaged suspected bone island within the head of the left fifth rib. 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 The cervical lordosis is preserved. There is no significant spondylolisthesis. Please note that CT is insensitive for evaluating spinal canal patency without intrathecal contrast. There is multilevel cervical spondylosis high-grade spinal canal stenosis. Normal appearance of the paraspinal soft tissues. Partially imaged suspected centrilobular emphysema in the lungs. Small air-filled internal laryngocele partially effacing the left paraglottic fat. Normal appearance of the thyroid gland. CT/CT cervical spine wo IV con IMPRESSION: 1. No CT evidence of acute intracranial injury. 2. 3 mm hyperdensity within the anterosuperior third ventricle may reflect a small proteinaceous versus calcified colloid cyst. No obstructive hydrocephalus. 3. No evidence of acute traumatic injury in the cervical spine. Electronically signed by: Maryuri Perez MD 02/21/2024 08:51 PM EDT
[2024-02-21 18:58] VITALS: BP 181/106; PULSE 73; RESP 16; TEMP 36.8; O2SAT 98; BMI 23.2
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
== END 2024-02-21 22:24 | disposition left against medical advice (07) ==
LOC: HO.ED 22:23
PROVIDERS: Emergency Provider Emergency Medicine
DX: S19.9XXA Unspecified injury of neck, initial encounter (principal); S79.911A Unspecified injury of right hip, initial encounter; R51.9 Headache, unspecified; M54.2 Cervicalgia; M25.551 Pain in right hip; V43.52XA Car driver injured in collision with other type car in traffic accident, initial encounter; Y93.89 Activity, other specified; Y92.488 Other paved roadways as the place of occurrence of the external cause; Y99.8 Other external cause status; Z79.899 Other long term (current) drug therapy
CPT/HCPCS: 70450; 72125; 73502; 99281; 99284